=== PATIENT | female | born 2000 | race Caucasian/White ===

== ENCOUNTER 2020-04-20 20:20 | Emergency (ER) | payer OTHER, SELFPAY ==
[~2020-04-20] VITALS: Ht 160 cm; Wt 55.9 kg
[2020-04-20 21:50] LABS: BASO # 0.1 10^3/uL (0.0-0.2); BASO % 0.5 % (0.0-1.0); EOS % 0.4 % (0.0-3.0); HEMATOCRIT 39.8 % (36.0-47.0); HEMOGLOBIN 13.6 g/dl (12.0-15.5); LYMPH % 19.8 % (24.0-44.0); MEAN CORPUSCULAR HEMOGLOBIN 31.2 pg (27.0-33.0); MEAN CORPUSCULAR HGB CONC 34.2 g/dl (32.0-36.5); MEAN CORPUSCULAR VOLUME 91.3 fl (80.0-96.0); MONO # 0.7 10^3/uL (0.0-0.8); MONO % 6.4 % (0.0-5.0); NEUTROPHILS # 7.4 10^3/uL (1.5-8.5); NEUTROPHILS % 72.6 % (36.0-66.0); PLATELET COUNT, AUTOMATED 270 10^3/uL (150-450); RED BLOOD COUNT 4.36 10^6/uL (4.00-5.40); WHITE BLOOD COUNT 10.1 10^3/uL (4.0-10.0)
[2020-04-20 22:11] LABS: BLOOD UREA NITROGEN 19 MG/DL (7-18); CALCIUM LEVEL 9.6 MG/DL (8.5-10.1); CARBON DIOXIDE LEVEL 29 MEQ/L (21-32); CHLORIDE LEVEL 108 MEQ/L (98-107); CREATININE FOR GFR 0.72 MG/DL (0.55-1.30); GLOMERULAR FILTRATION RATE > 60.0 (>60); GLUCOSE, FASTING 75 MG/DL (70-100); POTASSIUM SERUM 3.5 MEQ/L (3.5-5.1); SODIUM LEVEL 141 MEQ/L (136-145)
[2020-04-20 23:30] VITALS: BP 106/60
--- NOTE | 2020-04-20 23:42 | REPVR ---
PROCEDURE INFORMATION: Exam: US First Trimester, Transabdominal Exam date and time: 04/20/2020 10:58 PM Age: 19 years old Clinical indication: complicated by abdominal or pelvic pain; Lower; First trimester; Gestational age or lmp: 6; TECHNIQUE: Imaging protocol: Real-time transabdominal obstetrical ultrasound of the maternal pelvis and a first trimester , less than 14 weeks 0 days, with image documentation. COMPARISON: No relevant prior studies available. FINDINGS: Gestation: Single live intrauterine gestation. Uterus is in the right horn of a bicornuate uterus. Embryonic/ heart rate: heart rate is 114 bpm. Placenta: Unremarkable. No subchorionic bleed. Amniotic fluid: Amniotic fluid is normal for gestational age. BIOMETRY: Gestational age (AUA): Estimated gestational age 6 weeks 0 days. Estimated due date (AUA): Estimated due date is 12/13/2020. Mean sac diameter: Mean sac diameter is 1.4 cm. [place]-Rump length: [place]-rump length measures measures 3.4 mm. MATERNAL: Uterus: Uterus measures 8.9 x 5.5 x 7.8 cm. No uterine masses. Bicornuate uterus. Cervix: Unremarkable. Right adnexa: Right ovary measures 3.6 x 2.1 x 1.9 cm. No masses. Left adnexa: Left ovary measures 3.5 x 2.3 x 2.2 cm. No masses. Intraperitoneal space: No intraperitoneal free fluid. IMPRESSION: 1. Single live intrauterine gestation. 2. Estimated gestational age 6 weeks 0 days. 3. Estimated due date is 12/13/2020. 4. Bicornuate uterus. 5. Gestational sac is located in the right uterine horn. Electronically signed by: Dorina Hwang On 04/20/2020 23:42:39 PM
== END 2020-04-20 23:47 | disposition home or self-care (01) ==
LOC: M ED 20:20
DX: O34.591 Maternal care for other abnormalities of gravid uterus, first trimester (principal); Z3A.01 Less than 8 weeks gestation of pregnancy; Z87.891 Personal history of nicotine dependence

== ENCOUNTER 2020-05-26 13:18 | Emergency (ER) | payer MEDICAID, SELFPAY ==
[~2020-05-26] VITALS: Ht 160 cm; Wt 58.4 kg
[2020-05-26] MEDS ORDERED: GNP650TA8 PO (13:28)
[2020-05-26] MEDS ORDERED: ACETAMINOPHEN 500 MG TAB PO ONE (13:45)
[2020-05-26 13:50] LABS: BASO % 0.3 % (0.0-1.0); EOS % 0.2 % (0.0-3.0); HEMATOCRIT 41.7 % (36.0-47.0); HEMOGLOBIN 14.1 g/dl (12.0-15.5); LYMPH # 1.3 10^3/uL (1.5-5.0); LYMPH % 10.6 % (24.0-44.0); MEAN CORPUSCULAR HEMOGLOBIN 31.4 pg (27.0-33.0); MEAN CORPUSCULAR HGB CONC 33.8 g/dl (32.0-36.5); MEAN CORPUSCULAR VOLUME 92.9 fl (80.0-96.0); MONO # 0.4 10^3/uL (0.0-0.8); MONO % 3.6 % (0.0-5.0); NEUTROPHILS # 10.4 10^3/uL (1.5-8.5); NEUTROPHILS % 85.1 % (36.0-66.0); PLATELET COUNT, AUTOMATED 299 10^3/uL (150-450); RED BLOOD COUNT 4.49 10^6/uL (4.00-5.40); WHITE BLOOD COUNT 12.2 10^3/uL (4.0-10.0)
[2020-05-26 14:14] LABS: BLOOD UREA NITROGEN 11 MG/DL (7-18); CALCIUM LEVEL 9.6 MG/DL (8.5-10.1); CARBON DIOXIDE LEVEL 27 MEQ/L (21-32); CHLORIDE LEVEL 109 MEQ/L (98-107); CREATININE FOR GFR 0.72 MG/DL (0.55-1.30); GLOMERULAR FILTRATION RATE > 60.0 (>60); GLUCOSE, FASTING 89 MG/DL (70-100); HCG, SERUM QUANTITATIVE 999 MIU/ML; SODIUM LEVEL 140 MEQ/L (136-145)
[2020-05-26 15:00] VITALS: BP 116/76
== END 2020-05-26 15:09 | disposition home or self-care (01) ==
LOC: M ED 13:18
DX: O03.9 Complete or unspecified spontaneous abortion without complication (principal); O99.330 Smoking (tobacco) complicating pregnancy, unspecified trimester; Z87.442 Personal history of urinary calculi; Z87.448 Personal history of other diseases of urinary system

== ENCOUNTER 2020-11-06 13:36 | Emergency (ER) | payer OTHER, MEDICAID ==
[~2020-11-06] VITALS: Ht 157.5 cm; Wt 56.0 kg
[~2020-11-06 13:36] MED LIST: GNP650TA8 PO
[2020-11-06 14:40] LABS: BASO % 0.3 % (0.0-1.0); HEMOGLOBIN 12.5 g/dl (12.0-15.5); LYMPH % 9.8 % (24.0-44.0); MEAN CORPUSCULAR HEMOGLOBIN 30.9 pg (27.0-33.0); MEAN CORPUSCULAR HGB CONC 33.8 g/dl (32.0-36.5); MEAN CORPUSCULAR VOLUME 91.4 fl (80.0-96.0); MONO # 0.4 10^3/uL (0.0-0.8); NEUTROPHILS % 85.5 % (36.0-66.0); PLATELET COUNT, AUTOMATED 214 10^3/uL (150-450); RED BLOOD COUNT 4.05 10^6/uL (4.00-5.40); WHITE BLOOD COUNT 10.6 10^3/uL (4.0-10.0)
[2020-11-06] MEDS ORDERED: ONDANSETRON 4MG/2ML VIAL IV ONE (15:15)
[2020-11-06] MEDS ORDERED: NS 500 ML IV ONE (15:15)
[2020-11-06 15:28] LABS: ALBUMIN 3.9 GM/DL (3.2-5.2); ALT/SGPT 24 U/L (12-78); BILIRUBIN,DIRECT < 0.1 MG/DL (0.0-0.2); BILIRUBIN,TOTAL 0.2 MG/DL (0.2-1.0); BLOOD UREA NITROGEN 13 MG/DL (7-18); CALCIUM LEVEL 9.3 MG/DL (8.5-10.1); CARBON DIOXIDE LEVEL 27 MEQ/L (21-32); CHLORIDE LEVEL 106 MEQ/L (98-107); CREATININE FOR GFR 0.69 MG/DL (0.55-1.30); GLOMERULAR FILTRATION RATE > 60.0 (>60); GLUCOSE, FASTING 87 MG/DL (70-100); HCG, SERUM QUANTITATIVE 97739 MIU/ML; LIPASE 140 U/L (73-393); SODIUM LEVEL 139 MEQ/L (136-145); TOTAL PROTEIN 7.6 GM/DL (6.4-8.2)
[2020-11-06] MEDS ORDERED: ACETAMINOPHEN 325 MG TAB PO ONE (15:55)
[2020-11-06] MEDS ORDERED: ZOFR4TAB16 PO (16:31)
[2020-11-06 16:41] VITALS: BP 109/51
== END 2020-11-06 16:46 | disposition home or self-care (01) ==
LOC: M ED 13:36
DX: O21.9 Vomiting of pregnancy, unspecified (principal); O26.833 Pregnancy related renal disease, third trimester; O26.899 Other specified pregnancy related conditions, unspecified trimester
CPT/HCPCS: 80048; 80076; 81001; 83690; 84702; 85025; 87086; 96361; 96374; 99284; J2405

== ENCOUNTER → 2021-02-01 | Outpatient (REF) | payer OTHER, MEDICAID ==
[~2021-02-01] MED LIST changes: +ZOFR4TAB16 PO
[2021-02-01 11:34] LABS: HEMATOCRIT 33.7 % (36.0-47.0); HEMOGLOBIN 11.2 g/dl (12.0-15.5); MEAN CORPUSCULAR HEMOGLOBIN 31.7 pg (27.0-33.0); MEAN CORPUSCULAR HGB CONC 33.2 g/dl (32.0-36.5); MEAN CORPUSCULAR VOLUME 95.5 fl (80.0-96.0); PLATELET COUNT, AUTOMATED 233 10^3/uL (150-450); RED BLOOD COUNT 3.53 10^6/uL (4.00-5.40); WHITE BLOOD COUNT 9.7 10^3/uL (4.0-10.0)
[2021-02-01 13:11] LABS: HEPATITIS C VIRUS ABY INDEX < 0.0 INDEX (<0.8); HIV 1&2 SCREEN CENTAUR NEGATIVE (NEGATIVE)
== END ==
LOC: M PLALAB 08:54
PROVIDERS: ATTEND Specialist
DX: Z36.89 Encounter for other specified antenatal screening (principal); Z3A.00 Weeks of gestation of pregnancy not specified

== ENCOUNTER → 2021-02-01 | Outpatient (CLI) | payer OTHER ==
--- NOTE | 2021-02-01 09:07 | REP ---
INDICATION: ANATOMY COMPARISON: None. TECHNIQUE: Transabdominal obstetrical ultrasound with color Doppler evaluation. FINDINGS: Examination demonstrates a single live intrauterine in cephalic presentation. motion is identified by technologist. Placenta is noted anterior and grade 0 without evidence for placenta previa or abruption. Amniotic fluid volume is normal. Cervix measures 3.2 cm in length and appears closed.. Selected gestational age: 21 weeks 1 day with JOYCE 06/13/2021. Gestational age by current measurements 21 weeks 1 day with JOYCE 06/13/2021. FHR equals 133 beats per minute. Estimated weight 394 grams (39thpercentile). Anatomical assessment demonstrates normal structures including cranium, choroid plexus, cavum, cerebellum/posterior fossa, facial features, lungs, diaphragm, stomach, cord insertion/three-vessel cord, kidneys/bladder, spine, and extremities. IMPRESSION: Single live intrauterine in cephalic presentation demonstrating appropriate interval growth. Limited evaluation of the heart/ventricular outflow tracts. Remainder of the anatomical assessment is complete and normal. <Electronically signed by Lennox Flynn > 02/01/21 [id number]
== END ==
LOC: M WHC 07:57
PROVIDERS: ATTEND Specialist
DX: Z36.89 Encounter for other specified antenatal screening (principal); Z3A.21 21 weeks gestation of pregnancy

== ENCOUNTER → 2021-02-07 | Outpatient (REF) | payer OTHER | LOC: M SFHCWAGY 12:53 | PROVIDERS: ATTEND Advanced Practice Midwife | DX: Z34.82 Encounter for supervision of other normal pregnancy, second trimester (principal); Z36.89 Encounter for other specified antenatal screening ==

== ENCOUNTER → 2021-04-04 | Outpatient (CLI) | payer OTHER ==
--- NOTE | 2021-04-04 11:34 | REP ---
INDICATION: F/U ANATOMY EDC 06/13/21 HEART VOT. COMPARISON: 02/01/2021 TECHNIQUE: TRANSABDOMINAL SCANNING FINDINGS: MULTIPLE ULTRASONOGRAPHIC IMAGES OF THE GRAVID UTERUS SHOWS A SINGLE LIVING INTRAUTERINE GESTATION IN THE CEPHALIC PRESENTATION. DOPPLER INTERROGATION OF THE HEART SHOWS A HEART RATE OF 139 BEATS PER MINUTE. THE PLACENTA IS ANTERIOR AND NOT LOW-LYING. THE CERVIX MEASURES 3.9 CM IN LENGTH AND IS CLOSED. DOPPLER INTERROGATION OF THE UMBILICAL ARTERY SHOWS AN A\B RATIO OF 3.51. THIS IS WITHIN THE NORMAL RANGE. BPD: 7.6 cm 30 weeks 2 days HC: 28.2 cm 30 weeks 6 days AC: 26.0 cm 30 weeks 1 day FL: 5.7 cm 30 weeks 0 days The estimated weight is 1531 g which is at the 44th percentile for a 30 week 0 day gestational age. Ventricular outflow tracts and four-chamber heart was still suboptimally visualized. IMPRESSION: Single living intrauterine gestation as described above with an estimated gestational age of 30 weeks 1 day via composite criteria and an estimated date of delivery of 06/12/2021 by today's exam. Four-chamber heart and ventricular outflow tracts still suboptimally visualized. Additional follow-up is recommended. <Electronically signed by Monico Calixto > 04/04/21 [id number]
== END ==
LOC: M WHC 09:16
PROVIDERS: ATTEND Advanced Practice Midwife
DX: Z34.82 Encounter for supervision of other normal pregnancy, second trimester (principal); Z36.2 Encounter for other antenatal screening follow-up; Z3A.30 30 weeks gestation of pregnancy

== ENCOUNTER → 2021-04-05 | Outpatient (CLI) | payer OTHER ==
[2021-04-05 17:26] LABS: HEMOGLOBIN 10.8 g/dl (12.0-15.5); MEAN CORPUSCULAR HEMOGLOBIN 31.5 pg (27.0-33.0); MEAN CORPUSCULAR HGB CONC 32.7 g/dl (32.0-36.5); MEAN CORPUSCULAR VOLUME 96.2 fl (80.0-96.0); PLATELET COUNT, AUTOMATED 257 10^3/uL (150-450); RED BLOOD COUNT 3.43 10^6/uL (4.00-5.40); WHITE BLOOD COUNT 14.6 10^3/uL (4.0-10.0)
== END ==
LOC: M PLALAB 13:03
PROVIDERS: ATTEND Advanced Practice Midwife
DX: Z34.82 Encounter for supervision of other normal pregnancy, second trimester (principal); Z3A.00 Weeks of gestation of pregnancy not specified

== ENCOUNTER → 2021-05-19 | Outpatient (REF) | payer OTHER | LOC: M SFHCWAGY 12:49 | PROVIDERS: ATTEND Obstetrics & Gynecology | DX: Z34.83 Encounter for supervision of other normal pregnancy, third trimester (principal); Z36.89 Encounter for other specified antenatal screening ==

== ENCOUNTER 2021-06-16 16:43 | Outpatient (CLI) | payer OTHER ==
[~2021-06-16] VITALS: Ht 157.5 cm; Wt 67.6 kg
[2021-06-16 17:06] VITALS: BP 134/76
[2021-06-16] MEDS ORDERED: PRENTAB9 PO (17:13)
[2021-06-16] MEDS ORDERED: BENA25CA4 PO (17:13)
[2021-06-16] MEDS ORDERED: IRON27TA2 PO (17:13)
[2021-06-16] MEDS ORDERED: ACET-907 PO (17:13)
[2021-06-16] MEDS ORDERED: HOME MED LIST COMPLETE! XX SCH (17:15)
[2021-06-16 18:34] VITALS: BP 109/73
[2021-06-16 19:18] VITALS: BP 123/59
--- NOTE | 2021-06-16 20:08 | IPNPDOC ---
Text Note Date of Service The patient was seen on 06/16/21. NOTE S: Yuli is a 20 year old at 40 3/7 who presented to Labor and Delivery with painful uterine contractions that began earlier this afternoon. She denies any loss of fluid or vaginal bleeding. Her is complicated by bicornate uterus, late entry to care at 18 weeks gestation and history of kidney stones. O: VS-see below FHR-135 with moderate variability, TOCO with uterine irritability. SVE reveals cervix at 1cm/25%/-3. No cervical change since arrival to unit. A: IUP at 40 3/7, reassuring monitoring strip, uterine irritability P: Discussed with patient that she is not in active labor at this time. Plan of care to have patient discharged to home. Pt on induction book for Saturday. Reviewed comfort measures, reviewed signs of labor and danger signs to report. Patient agrees with plan of care. VS,Fishbone, I+O VS, Fishbone, I+O Vital Signs Date Time Temp Pulse Resp B/P (MAP) Pulse Ox O2 Delivery O2 Flow Rate FiO2 06/16/21 19:18 98.2 80 16 123/59 (80) 100 Room Air Isabella Borrero CNM Jun 16, 2021 20:08
== END 2021-06-16 20:05 | disposition home or self-care (01) ==
LOC: M LDO 16:43
PROVIDERS: ATTEND Advanced Practice Midwife
DX: O60.03 Preterm labor without delivery, third trimester (principal); O34.03 Maternal care for unspecified congenital malformation of uterus, third trimester; Z87.442 Personal history of urinary calculi; Z3A.40 40 weeks gestation of pregnancy
CPT/HCPCS: 59025; G0378; G0463

== ENCOUNTER 2021-06-17 09:15 | Inpatient (IN) | payer OTHER ==
[2021-06-17] VITALS (37 sets, daily range): BP systolic 79–136; BP diastolic 43–80
[~2021-06-17] VITALS: Ht 157.5 cm; Wt 66.8 kg
[~2021-06-17 09:15] MED LIST changes: +ACET-907 PO; +BENA25CA4 PO; +IRON27TA2 PO; +PRENTAB9 PO
[2021-06-17] MEDS ORDERED: HOME MED LIST COMPLETE! XX SCH (10:20)
--- OUTSIDE RECORDS SUMMARY | 2021-06-17 12:23 | CCD ---
Author Author [facility] Organization [facility] Address Unknown Phone Unavailable Care Team Providers Care Optomechanical Engineer Name Role Phone Uzma Scott Unavailable PROBLEMS Type Condition ICD9-CM Code [id number] Code Onset Dates Condition S tatus W/U Status Risk SNOMED Code Notes Problem Bicornate uterus Q51.3 Active confirmed 314 62428 Problem Supervision of other normal Z34.80 Ac tive confirm [id number] ALLERGIES No Known Allergies ENCOUNTERS from 1998 to 2021-05-15 Encounter Location Date Provider Diagnosis [facility] [address] [facility] [phone] [place] [address] Mar, Uzma Tyler Limited car e in third trimester O09.33 and 32 weeks gestation of Z3A.32 IMMUNIZATIONS Vaccine Route Administration Date Status TDAP 0.5mL Boostrix IM Intramuscular Apr 04, 2021 Administere d SOCIAL HISTORY Tobacco Use: Social History Observation Description Date Details (start date - stop date) Former Smoker Sex Assigned At : Social History Observation Description Sex Assigned At Unknown Domestic Violence: Question Answer Notes Status: No history of abuse Tobacco Use: Question Answer Notes Are you a: former smoker one cig a month REASON FOR REFERRAL No Information VITAL SIGNS Weight 145.0 lbs Mar, Weight-kg 65.77 kg Mar, Height 63 in Mar, BMI 25.686 kg/m2 Mar, Blood pressure systolic 110 mm Hg Mar, Blood pressure diastolic 60 mm Hg Mar, MEDICATIONS Medication SIG (Take, Route, Frequency, Duration) Notes Start Da te End Date Status 27-1 MG 1 tablet Orally Once a day Active Iron Active PROCEDURES No Information RESULTS No Results REASON FOR VISIT 2wk pn MEDICAL (GENERAL) HISTORY Type Description Date Surgical History IUD Removal 09/2019 Goals Section No Information Health Concerns No Information MEDICAL EQUIPMENT No Information MENTAL STATUS No Information FUNCTIONAL STATUS No Information ASSESSMENTS Encounter Date Diagnosis Assessment Notes Treatment Notes Treatm ent Clinical Notes Mar, Limited care in third trimester (ICD-10 - O09.33) Mar, 32 weeks gestation of (ICD-10 - Z3A.32 ) PLAN OF TREATMENT Treatment Notes Test Name Order Date WWBC OBS FOLLOW UP OR REPEAT 2021-04-20 Next Appt Details 2 Weeks Reason:PN Provider Name:Beronica Worley, 2021-04-27 4 08:20:00 AM, [address] [place] [address] , [place], [address], Provider Name:Hema Parker, 01:00:00 PM, [address] [place] [address], , [place], [address], Follow Up:2 WeeksPN Insurance Providers Payer Name Payer Address Payer Phone Insured Name Patient Relati onship to Insured Coverage Start Date Coverage End Date [facility] [address] [place] [address] [employer] DEPT [address] [facility] [phone] IVAN MONTANEZ self
--- OUTSIDE RECORDS SUMMARY | 2021-06-17 12:23 | CCD ---
Author Author [facility] Organization [facility] Address Unknown Phone Unavailable Care Team Providers Care Jail Guard Name Role Phone Clayton LITTLE MD Unavailable Unavailable ANABEL, L LILIAM MD Unavailable Unavailable ANABEL, L LILIAM MD Unavailable Unavailable ANABEL, L LILIAM MD Unavailable Unavailable ANABEL, L LILIAM MD Unavailable Unavailable ANABEL, L LILIAM MD Unavailable Unavailable ANABEL, L LILIAM MD Unavailable Unavailable ANABEL, L LILIAM MD Unavailable Unavailable ANABEL, L LILIAM MD Unavailable Unavailable ANABEL, L LILIAM MD Unavailable Unavailable ANABEL, L LILIAM MD Unavailable Unavailable ANABEL, L LILIAM MD Unavailable Unavailable ANABEL, L LILIAM MD Unavailable Unavailable ANABEL, L LILIAM MD Unavailable Unavailable ANABEL, L LILIAM MD Unavailable Unavailable ANABEL, L LILIAM MD Unavailable Unavailable ANABEL, L LILIAM MD Unavailable Unavailable ANABEL, L LILIAM MD Unavailable Unavailable ANABEL, L LILIAM MD Unavailable Unavailable ANABEL, L LILIAM MD Unavailable Unavailable NON, PHYSICIAN STAFF Unavailable Unavailable Re-disclosure Warning The records that you are about to access may contain information from federally-assisted alcohol or drug abuse programs. If such information is present, then the following federally mandated warning applies: This information has been disclosed to you from records protected by federal confidentiality rules (42 CFR part 2). The federal rules prohibit you from making any further disclosure of this information unless further disclosure is expressly permitted by the written consent of the person to whom it pertains or as otherwise permitted by 42 CFR part 2. A general authorization for the release of medical or other information is NOT sufficient for this purpose. The Federal rules restrict any use of the information to criminally investigate or prosecute any alcohol or drug abuse patient.The records that you are about to access may contain highly sensitive health information, the redisclosure of which is protected by Article 27-F of the [facility] Public Health law. If you continue you may have access to information: Regarding HIV / AIDS; Provided by facilities licensed or operated by the [facility] Office of Mental Health; or Provided by the [facility] Office for People With Developmental Disabilities. If such information is present, then the following [facility] mandated warning applies: This information has been disclosed to you from confidential records which are protected by state law. State law prohibits you from making any further disclosure of this information without the specific written consent of the person to whom it pertains, or as otherwise permitted by law. Any unauthorized further disclosure in violation of state law may result in a fine or skilled nursing sentence or both. A general authorization for the release of medical or other information is NOT sufficient authorization for further disc losure. Encounters Encounter Providers Location Date Indications Data Source(s ) ( ESTOB) [facility] [place] [address] [place] [phone] 06/09/2021 12:00:00 AM EDT eCW1 ([facility]) ( ESTOB) [facility] [place] [address] [place] [phone] 05/30/2021 12:00:00 AM EDT eCW1 ([facility]) ( ESTOB) [facility] [address] [place] [address] 05/25/2021 12:00:00 AM EDT eCW1 ([facility]) ( ESTOB) [facility] [address] [place] [address] 05/19/2021 12:00:00 AM EDT eCW1 ([facility]) ( ESTOB) [facility] [address] [place] [address] 05/10/2021 12:00:00 AM EDT eCW1 ([facility]) ( ESTOB) [facility] [place] [address] [place] [phone] 05/02/2021 12:00:00 AM EDT eCW1 ([facility]) ( ESTOB) [facility] Est OB [address] [place] [address] 04/20/2021 12:00:00 AM EDT eCW1 ([facility]) ( ESTOB) [facility] Est OB [address] [place] [address] 04/04/2021 12:00:00 AM EDT eCW1 ([facility]) ( ESTOB) [facility] Est OB [address] [place] [address] 02/07/2021 12:00:00 AM EDT eCW1 ([facility]) ( NEWOB) [facility] New OB Visit [address] [place] [address] 01/10/2021 12:00:00 AM EDT eCW1 ([facility]) Emergency Attender: LILIAM LITTLE MDConsultant: STAFF NON 11/03/2020 01:09:00 PM EST - 11/03/2020 05:55:00 PM EST [facility] Patient discharged. Outpatient [address] [facility] [address] 05/27/2020 12:00:00 AM EDT eCW1 ([facility]) Immunizations Vaccine Date Status Description Data Source(s) Tdap 04/04/2021 11:39:00 AM EDT completed e CW1 ([facility]) Tdap 04/04/2021 11:39:00 AM EDT completed e CW1 ([facility]) Tdap 04/04/2021 11:39:00 AM EDT completed e CW1 ([facility]) Tdap 04/04/2021 11:39:00 AM EDT completed e CW1 ([facility]) Tdap 04/04/2021 11:39:00 AM EDT completed e CW1 ([facility]) Tdap 04/04/2021 11:39:00 AM EDT completed e CW1 ([facility]) Tdap 04/04/2021 11:39:00 AM EDT completed e CW1 ([facility]) Tdap 04/04/2021 11:39:00 AM EDT completed e CW1 ([facility]) Medications No Information Insurance Providers Payer name Policy type / Coverage type Policy ID Covered republican ID Covered republican's relationship to frias Policy Frias Plan Information [facility] [id number] SP [id number] KISHAN [id number] SP [id number] [facility] [id number] SP [id number] [facility] [id number] SP [id number] [facility] MEDICAID [id number] SP [id number] F [facility] MEDICAID [id number] SP [id number] [facility] [id number] SP [id number] EM[place] [id number] SP [id number] [facility] PHYS/HLTH PLAN [id number] SP [id number] [facility] PHYS/HLTH PLAN [id number] SP [id number] PRIVATE PAY MUDGE IVAN 18 MUD GE IVAN EMEDNY [id number] SP [id number] SELF PAY ONLY [id number] SP [id number] SELF PAY ONLY [id number] SP [id number] Problems, Conditions, and Diagnoses Code Display Name Description Problem Type Effective Dates Data Source(s) A72811 Personal history of nicotine dependence Personal history of nicotine dependence Diagnosis 11/03/2020 01:09:00 PM [facility] Z3A08 8 weeks gestation of 8 weeks gestation of pr egnancy Diagnosis 11/03/2020 01:09:00 PM [facility] R3129 Other microscopic hematuria Other microscopic hematuri a Diagnosis 11/03/2020 01:09:00 PM [facility] I77330 Other specified related condit ions, first trimester Other specified related conditions, first trimester Diagnosis 11/03/2020 01:09:00 PM [facility] R1032 Left lower quadrant pain Left lower quadrant pain Diag nosis 11/03/2020 01:09:00 PM [facility] Z34.80 care Supervision of other normal P enriquetalem 01/09/2021 12:00:00 AM EDT eCW1 ([facility]) Q51.3 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 05/26/2020 12:00:00 AM EDT eCW1 ([facility]) Surgeries/Procedures Procedure Description Date Indications Data Source(s) TDAP VACCINE 7/> YR IM 04/04/2021 12:00:00 AM EDT eCW1 ([facility]) Results ID Date Data Source GROUP B STREP CULTURE 05/19/2021 12:00:00 AM EDT eCW1 ([facility]) Name Value Range Interpretation Code Description Data Deb rce(s) Supporting Document(s) GROUP B STREP CULTURE eCW1 ([facility]) ID Date Data Source URINE CULTURE 02/07/2021 12:00:00 AM EDT eCW1 ([facility]) Name Value Range Interpretation Code Description Data Deb rce(s) Supporting Document(s) URINE CULTURE eCW1 ([facility]) ID Date Data Source [id number] 11/04/2020 08:49:00 [place] [address] PHONE: [phone] FAX: [phone] Name .................. : LISSETH LOVE Acct Number.................. : [id number] ROOM. ................. : TR-04 Number ................... : [id number] Stay type ............. : E/R Discharge Date......... ... : Admit Date ......... : 10/24 09/15 Admit Phys .................... : COONEYNORM Date of ....... : 2000 Family Phys ................... : NON STAFF Phone .................. : [phone] Age ................................ : 20 Film# .................. .:[id number] Sex ................................. : F Unsigned transcriptions are preliminary reports and do not represent a medical or legal document RENAL COMPLETE [id number] COMPLETE:11/03/20 17:09 ADB 6094 Reason(s): , left flank pain, microscopic hematuria RENAL ULTRASOUND: INDICATION: with left flank pain and microscopic hematuria. FINDINGS: The right kidney is normal in size, contour and echogenicity. The left kidney is also normal in size, contour and echogenicity. There is no hydronephrosis on the right. There is mild left renal pelvic fullness with no definitive hydronephrosis. No visualized stones. IMPRESSION: Mild left renal pelvic fullness. No stones are visualized. There could be a more distal obstructive stone. Electronically Reviewed and Signed By Aftab Main M.D. , 11/04/20 08:49, [place] Transcribe Initials: ERIKA , Transcribe Date: 11/03/20 17:37, Dictation Date: Copy for: [address] [place] [address] REC DISCHARGED Page 1 of 1 Name Value Range Interpretation Code Description Data Deb rce(s) Supporting Document(s) ID Date Data Source [id number] 11/04/2020 08:43:00 AM EST [facility] [address] [place] [address] PHONE: [phone] FAX: [phone] Name .................. : LISSETH LOVE Acct Number.................. : [id number] ROOM. ................. : TR-04 MR Number ................... : [id number] Stay type ............. : E/R Discharge Date......... ... : Admit Date ......... : 10/24 09/15 Admit Phys .................... : COONEYNORM Date of ....... : 2000 Family Phys ................... : NON STAFF Phone .................. : [phone] Age ................................ : 20 Film# .................. .:[id number] Sex ................................. : F Unsigned transcriptions are preliminary reports and do not represent a medical or legal document US OB 1ST TRI W TV IF NEEDED [id number] COMPLETE:11/03/20 15:40 GSP 6092 Reason(s): OBSTETRICAL ULTRASOUND: COMPARISON: None available. FINDINGS: Transvesical imaging of the pelvis demonstrates a single live intrauterine gestation of 7 weeks 5 days based on a crown rump length of 1.4 cm. A heart rate of 160 beats per minute is noted. The estimated date of delivery is approximately 06/12/21. IMPRESSION: Single live intrauterine gestation as described above. Electronically Reviewed and Signed By Enrique Tadeo MD , 11/04/20 08:43, AML Transcribe Initials: ERIKA , Transcribe Date: 11/03/20 17:19, Dictation Date: Copy for: 710 MED REC DISCHARGED Page 1 of 1 Name Value Range Interpretation Code Description Data Deb rce(s) Supporting Document(s) ID Date Data Source [id number] 11/03/2020 01:09:00 PM EST [facility] 1 OrderSheet [facility] Emergency Department [address] [place] [address] Phone #: ext- [phone] 11/03/2020 12:57 Patient: IVAN MONTANEZ Sex: F : 2000 Age: 20yWEIGHT:54.4 kg (S)ALLERGIES: NoneCHIEF COMPLAINT: abdominal painDIAGNOSIS: Patient currently , Blood in urineLAB ORDERSOrder Description Priority Entered Acknowledged InitialedCBC w Diff STAT 13:16 11/03/2020 13:18 Anabel Rowe Norma MD; Carlo JonesCMP STAT 13:16 11/03/2020 13:18 Anabel Rowe Norma MD; Carlo JonesUrinalysis (Clean STAT 13:16 11/03/2020 13:26 Joaquin EDCatch) Liliam Little MD; Sharmila Padron [id number] Serum Qual STAT 13:16 11/03/2020 13:18 Anabel Rowe Norma MD; Carlo JonesDIAGNOSTIC STUDY ORDERSOrder Description Priority Entered Acknowledged InitialedUS Pelvis STAT 14:49 11/03/2020 Initialed: 14:49 Carlo Rowe R.N.(Oxygen?(No)) Liliam Little MD; Cancelled: Physician Order 15:09 Cinthia Ho RN NOTES: ?8 weeks , LLQ pain, r/o torsion and ectopic Reason for Study: Pelvic PainUS OB 1ST TRI W STAT 15:09 11/03/2020 15:09 Vic,TV IF NEEDED Cinthia Ho RN; Cinthia RN(Oxygen?(No)) Verbal order per;(IV?(No)) Liliam Little MD Reason for Study: US RENAL STAT 16:16 11/03/2020 16:22 Jae,COMPLETE Liliam Little MD; Carlo Jones(Oxygen?(No))(IV?(Yes)) Reason for Study: , left flank pain, microscopic hematuriaMEDICATION/IV/DRIP/FLUID ORDERSOrder Description Priority Entered Acknowledged InitialedIV NS 1000 mL 13:17 11/03/2020 13:41 Jae, 2 OrderSheet [facility] Emergency Department [address] [place] [address] Phone #: ext- [phone] 11/03/2020 12:57 Patient: IVAN MONTANEZ Sex: F : 2000 Age: 20yBolus : Bolus 1000 Liliam Little MD; Carlo JonesmL (X1)Zofran IVP 4 mg 13:17 11/03/2020 13:42 Anabel Rowe Norma MD; Carlo JonesToradol IVP 30 mg 13:17 11/03/2020 13:42 Jae,(NOW x1) Liliam Little MD; Carlo JonesGENERAL ORDERSOrder Description Priority Entered Acknowledged Initialed[Electronically signed by Carlo Rowe R.N. (19:11/03/2020)][Electronically signed by Liliam Little MD (01:02 11/04/2020)][Elec tronically locked by Carol Rowe R.N. (:11/03/2020)] Name Value Range Interpretation Code Description Data Deb rce(s) Supporting Document(s) ID Date Data Source [id number] 11/03/2020 01:09:00 PM EST [facility] 1 Medication Reconciliation Report [facility] Emergency Department [address] [place] [address] Phone #: ext- [phone] 11/03/2020 12:57 Patient: IVAN MONTANEZ Sex: F : 2000 Age: 20yWeight: 54.4 kgHeight/Length: 62 in.BMI: 22.0ALLERGIES: NoneThe patient's Home Medications are listed below:NONE.The source(s) of the original Home Medication information:patientThe following Medications were given to the patient in the Emergency Department:NS [IV] IV Fluids bolus 0, then 1500 mL/hr, administered: 13:36 11/03/2020Zofran [IVP] IVP 4 mg, administered: 13:42 11/03/2020Toradol [IVP] IVP 30 mg, administered: 13:42 11/03/2020The following Medications were prescribed to the patient:None. Name Value Range Interpretation Code Description Data Deb rce(s) Supporting Document(s) ID Date Data Source [id number] 11/03/2020 01:09:00 PM EST [facility] 1 Medication Administration Record [facility] Emergency Department [address] [place] [address] Phone #: ext- [phone] 11/03/2020 12:57 Patient: IVAN MONTANEZ Sex: F : 2000 Age: 20yWeight: 54.4 kgHeight/Length: 62 inBMI: 22ALLERGIES: None Date/Time Medication Administered Medication OrderedStart NS [IV] IV NS 1000 mL Bolus : Bolus 708415:[id number] 11/03/2020 Dose: IV Fluids mL (X1)Carlo Rowe R.N. Rate: 1500 mL/hr over 40 minute(s)---- Dispensed: 1000 mL bagStop Site: #1 left AC14:10 11/03/2020Carlo braga RMassielGiven ZOFRAN [IVP] (ONDANSETRON HCL) Zofran IVP 4 mg13:42 11/03/2020 Dose: 4 mg IVPSCarlo braga R.N. Site: #1 left ACGiven TORADOL [IVP] (KETOROLAC Toradol IVP 30 mg (NOW x1)13:42 11/03/2020 TROMETHAMINE)Carlo Rowe R.N. Dose: 30 mg IVP Site: #1 left AC Name Value Range Interpretation Code Description Data Deb rce(s) Supporting Document(s) ID Date Data Source [id number] 11/03/2020 01:09:00 PM EST [facility] 1 General Instructions [facility] Emergency Department [address] [place] [address] Phone #: ext- [phone] 11/03/2020 12:57 Patient: IVAN MONTANEZ Sex: F : 2000 Age: 20yMicroscopic hematuriaFirst trimester ; positive test in emergency department.Possible Kidney Stone.INSTRUCTIONSNo strenuous activity.(Please follow up with OB and your primary care physician. You may take tylenol for pain. If you areworse, please return for further evaluation. You may have passed a kidney stone. It is very important tofollow up with your doctor regarding all of these issues.).Warnings: Further evaluation is necessary.GENERAL WARNINGS: Return or contact your physician immediately if your condition worsens orchanges unexpectedly, if not improving as expected, or if other problems arise.Follow-up:Follow up with your doctor Saturday even if well. Call for an appointment. Reason for referral: evaluation.Summary of care provided to patient via paper.Understanding of the discharge instructions verbalized by patient. ADDITIONAL INFORMATIONPregnancy 2 General Instructions [facility] Emergency Department [address] [place] [address] Phone #: ext- [phone] 11/03/2020 12:57 Patient: IVAN MONTANEZ Sex: F : 2000 Age: 20yYour exam today shows that you are . symptomsDuring your body's hormones change. This causes physical and emotional changes. Thisis normal. Knowing what to expect is important for your piece of mind and so you know when to seekhelp for a problem. Here are some of the most common symptoms: Morning sickness or nausea. This can happen any time of the day or night. Tender, swollen breasts Need to urinate frequently Tiredness or fatigue Dizziness Indigestion or heartburn Food cravings or turn-offs Constipation Emotional changes. This can range from anxiety to excitement to depression.General care for a healthy pregnancyHere are things you can do to help make sure your baby is born healthy: 3 General Instructions [facility] Emergency Department [address] [place] [address] Phone #: ext- [phone] 11/03/2020 12:57 Patient: IVAN MONTAENZ Sex: F : 2000 Age: 20y Rest when you feel tired. This is especially true in the later months of . Drink more fluids. Your body needs more fluids than you may be used to. Drink 8 to10 glasses of juice, milk, or water every day. Eat well-balanced meals. Eat at regular times to give your body enough protein. You can expect to gain about 30 pounds during the . Don't try to diet or lose weight while you are . Take a vitamin every day. This helps you meet the extra nutritional needs of . Don't take any other medicine during your unless your healthcare provider tells you to. This includes prescription medicines and those you buy over the counter. Many medicines can harm the growing baby. If you have nausea or vomiting, don't eat greasy or fried foods. Eat several smaller meals through out the day rather than 3 large meals. If you smoke, you must stop. The nicotine you breathe in goes right to the baby. Stay away from alcohol, even in moderate amounts. Daily drinking will harm your baby and can cause permanent brain damage. Don't use recreational drugs, especially cocaine, crack, and heroin. These will harm your baby. Also avoid marijuana. If you were using recreational drugs or prescribed medicine when you found out that you were , talk with your healthcare provider about possible effects on your growing baby. If you have medical problems that you need to take medicine for, talk with your healthcare provider.Follow-up careCall your healthcare provider to arrange for care. care is important. You can seeyour family provider, a specialist (machine tester), a loan collector, or a primary care clinic.When to seek medical adviceCall your healthcare provider right away if any of these occur: Vaginal bleeding Pain in your belly (abdomen) or back that is moderate or severe Lots of vomiting, or you can't keep any fluids down for 6 hours 4 General Instructions [facility] Emergency Department [address] [place] [address] Phone #: ext- [phone] 11/03/2020 12:57 Patient: IVAN MONTANEZ Sex: F : 2000 Age: 20y Burning feeling when you urinate Headache, dizziness, or rapid weight gain Fever Vision changes or blurred vision [phone] [employer] [place] [address], [place] [address]. All rights reserved. This information is not intended as asubstitute for professional medical care. Always follow your healthcare professional's instructions.Blood in the UrineBlood in the urine (hematuria) has many possible causes. If it occurs after an injury (such as a caraccident or fall), it is most often a sign of bruising to the kidney or bladder. Common causes of bloodin the urine include urinary tract infections, kidney stones, inflammation, tumors, or certain otherdiseases of the kidney or bladder. Menstruation can cause blood to appear in the urine sample, but itis not coming from the urinary tract.If only a tiny (trace) amount of blood is present, it will show up on the urine test, even though the urinemay be yellow and not pink or red. This may occur with any of the above conditions, as well as heavyexerci se or high fever. In this case, your healthcare provider may want to repeat the urine test onanother day. This will show if there is still blood in the urine. If there is, then other tests can be doneto find out the cause. 5 General Instructions [facility] Emergency Department [address] [place] [address] Phone #: ext- [phone] 11/03/2020 12:57 Patient: IVAN MONTANEZ Sex: F : 2000 Age: 20yHome careFollow these home care guidelines: If your urine does not look bloody (pink, brown, or red) then you don't need to restrict your activity in any way. If you can see blood in your urine, rest and don't do any strenuous activity until your next exam. Don't use aspirin, blood thinners, or anti-platelet or anti-inflammatory medicines. These include ibuprofen and naproxen. These thin the blood and may increase bleeding. Call your healthcare provider to talk about using these medicines.Follow-up careFollow up with your healthcare provider, or as advised. If you were injured and had blood in yoururine, you should have a repeat urine test in 1 to 2 days. Contact your provider for this test.A radiologist will review any X-rays that were taken. You will be told of any new findings that mayaffect your care.When to seek medical adviceCall your healthcare provider right away if any of these occur: Bright red blood or blood clots in the urine (if you did not have this before) Weakness, dizziness or fainting New groin, belly, or back pain Fever of 100.4F (38C) or higher, or as directed by your provider Repeated vomiting Bleeding from the nose or gums or easy bruising [employer] [address] [place] [address], [place] [address]. All rights reserved. This information is not intended as asubstitute for professional medical care. Always follow your healthcare professional's instructions. You have been given the following additional information: , New Dx Hematuria No strenuous activity. 6 General Instructions [facility] Emergency Department [address] [place] [address] Phone #: ext- [phone] 11/03/2020 12:57 [id number] Sex: F : 2000 Age: 20y(Electronically signed by Liliam Little MD 11/04/2020 01:02) Name Value Range Interpretation Code Description Data Deb rce(s) Supporting Document(s) ID Date Data Source [id number] 11/03/2020 01:09:00 PM EST [facility] 1 Clinical Report - Nurses [facility] Emergency Department [address] [place] [address] Phone #: ext- [phone] 11/03/2020 12:57 Patient: IVAN MONTANEZ Sex: F : 2000 Age: 20yTRIAGEHistorian: patient. ( left side pain).Triage time: 13:11 11/03/2020. Acuity: LEVEL 3.Chief Complaint: ABDOMINAL PAIN and NAUSEA.Alert. 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 No suspected or confirmed signs of infection present.--13:15 11/03/20 Carlo Rowe R.N.13:16 11/03/20. BP: 117/50. MAP: 72. HR: 61. RR: 16. O2 saturation: 100%. Temp: 98.3 F. Pain levelnow: 01/02. --13:16 11/03/20 Carlo Rowe R.N.Weight: 54.4 kg stated. Height/Length: 62 inches Per Patient. BMI: 22. --13:09 11/03/20 Carlo Rowe R.N.MedicationsNone. --17:55 11/03/20 Carlo Rowe R.N.AllergiesNone. --13:11 11/03/20 Carlo Rowe R.N.PROBLEMS:Nephrolithiasis. --13:13 11/03/20 Carlo Rowe R.N.Medication/allergy information source: the patient. --13:15 11/03/20 Carlo Rowe R.N.ADDITIONAL SURGERIES:D/c control device. --13:13 11/03/20 Carlo Rowe R.N.HistoryPAST MEDICAL HX: Confirmed .SOCIAL HX: Former smoker, end date 08/2020. No alcohol use or drug use. No recent travel. Noknown contact with a sick individual. She was offered HIV testing but declined and hepatitis C testing butdeclined. She has not traveled outside the [place] 2 Clinical Report - Nurses [facility] Emergency Department [address] [place] [address] Phone #: ext- [phone] 11/03/2020 12:57 Patient: IVAN MONTANEZ Sex: F : 2000 Age: 20y Infectious disease exposure: No infectious disease exposure. The patient was not exposed to Coronavirus. Patient is not a known carrier of tuberculosis, hepatitis, HIV, MRSA or VRE. Patient is not a known carrier of CRE. SELF HARM ASSESSMENT: Self harm assessment was performed. The patient answered "no" to the question(s) "Have you recently felt down, depressed, or hopeless?", "Do you have thoughts of harming or killing yourself?", "Do you have a plan for harming or killing yourself?" and "Have you recently had thoughts about harming or killing others?". ABUSE ASSESSMENT: No report of abuse. FALL RISK ASSESSMENT: Fall risk assessment completed. No risk factors identified. --13:15 11/03/20 S Carlo braga R.N. Assessment The patient states feels the same. --13:15 11/03/20 Carlo Rowe R.N. Interventions Identification band on patient. To treatment room. --13:15 11/03/20 Carlo Rowe R.N.PHYSICAL [id number] 11/03/20. Ambulatory to room. Patient gowned.GENERAL / NEURO / PSYCH: Alert. Oriented X 4. Appears in no acute distress.HEENT: Mucous membranes are pink.RESPIRATORY: Respirations not labored. Breath sounds within normal limits.CVS: Capillary refill less than 2 seconds.GI / : The patient has had nausea. Abdomen soft and nontender. Bowel sounds within normal limits.SKIN: Skin is warm and dry. --13:15 11/03/20 Carlo Rowe R.N.NURSING PROGRESS NOTESPatient gowned. Reassurance given. Two patient identifiers checked. Call light placed in reach. Siderails up x 1. Bed placed in lowest position. Brakes of bed on. Patient ready for evaluation- ED physiciannotified. --13:16 11/03/20 Carlo Rowe R.N. 13:30 11/03/2020 Site #1 started via IV in the left antecubital space with an 20g angiocath, with aseptic technique and good blood return; one attempt. Saline lock flushed with 10 mL saline. --13:40 11/03/20 Carlo Rowe R.N. 13:36 11/03/2020 Started bag #1 1000 mL IV Fluids NS; at 1500 mL/hr over 40 minute(s) via site #1 via IV pump. Allergies verified and confirmed 5 rights. IV patency established. IV site checked: no pain, redness, or swelling. IV flushed thoroughly pre- and post-medication administration. Information reviewed with patient including reason for taking this medication, signs of allergic reaction and precautions. Verbalizes understanding. --13:41 11/03/20 Carlo Rowe R.N. 3 Clinical Report - Nurses [facility] Emergency Department [address] [place] [address] Phone #: ext- [phone] 11/03/2020 12:57 Patient: IVAN MONTANEZ Sex: F : 2000 Age: 20y13:42 11/03/2020 Zofran (Ondansetron HCl) IVP 4 mg given over 2 minute(s) via site #1. Allergies verifiedand confirmed 5 rights. IV patency established. IV site checked: no pain, redness, or swelling. IV flushedthoroughly pre- and post- medication administration. IVP given by RN. Information reviewed with patientincluding reason for taking this medication, signs of allergic reaction and precautions. Verbalizesunderstanding. --13:42 11/03/20 Carlo Rowe R.N.13:42 11/03/2020 Toradol (Ketorolac Tromethamine) IVP 30 mg given over 2 minute(s) via site #1.Allergies verified and confirmed 5 rights. IV patency established. IV site checked: no pain, redness, orswelling. IV flushed thoroughly pre- and post-medication administration. IVP given by RN. Informationreviewed with patient including reason for taking this medication, signs of allergic reaction and precautions.Verbalizes understanding. --13:42 11/03/20 Carlo Rowe R.N.13:59 11/03/20. BP: 119/76. MAP: 90. HR: 64. RR: 16. O2 saturation: 99%. --14:00 11/03/20 Sharmila Arreola, Kntd753:10 11/03/2020 IV Fluids NS via IV site #1 Discontinued: bag #1 completed. Total amount infused: 1000mL. IV patency established. IV site checked: no pain, redness, or swelling. IV flushed thoroughly. --14: Carlo Rowe R.N.14:12 11/03/20. Reassurance given. Reassessment acuity: LEVEL 3. Reassessment after medicationadministered. No adverse reaction. Pain gone now. Nausea gone now. Overall patient status is improved-she states feels better. Two patient identifiers checked. Call light placed in reach. Side rails up x 1.Bed placed in lowest position. Brakes of bed on. --14:13 11/03/20 Carlo Rowe RCarmenNCarmen14:52 11/03/20. BP: 119/86. MAP: 97. HR: 71. RR: 16. O2 saturation: 99%. --14:52 11/03/20 Sharmila Arreola, Ddga358:05 11/03/20. Patient transported to [facility] by wheelchair with floor tech. --15:07 07/16Carlo Rowe R.NCarmen15:26 11/03/20. [facility] with [facility] tech. --15:26 11/03/20Carlo Rowe RCarmenNCarmen16:34 11/03/20. BP: 117/75. MAP: 89. HR: 64. RR: 16. O2 saturation: 99%. --16:34 11/03/20 Sharmila Arreola, Hopy101:36 11/03/20. Patient transported to [facility] by wheelchair with floor tech. --16:36 11/03/20Carlo Rowe R.N.17:07 11/03/20. Patient returned from [facility] by wheelchair with floor tech. --17:07 11/03/20Carlo Rowe R.N.17:29 11/03/20. BP: 117/68. MAP: 84. HR: 65. RR: 16. O2 saturation: 99%. --17:29 11/03/20 Sharmila Arreola, Tech1. 4 Clinical Report - Nurses [facility] Emergency Department [address] [place] [address] Phone #: ext- [phone] 11/03/2020 12:57 [id number] Sex: F : 2000 Age: 20yDISPOSITION / DISCHARGE 17:44 11/03/2020 Site #1 removed upon discharge. Catheter intact. Bandage applied. --17:54 11/03/20 Carlo Rowe R.N. 17:44 11/03/20. Departure time: 17:54 11/03/2020. Condition at departure: improved and stable. The goals identified in the patient's plan of care were met. Fall risk assessment completed. No risk factors identified. No learning barriers present. Discharge instructions provided and reviewed with the patient. Reviewed wa rnings. Reviewed medication(s). Treatments reviewed. Reviewed referral to a primary care physician. Activity restrictions (rest) reviewed. Patient verbalized understanding. Written instructions provided in Lithuanian. The patient was discharged home. She left ambulatory and via private vehicle. Patient driving. --17:55 11/03/20 Carlo Rowe R.N. 17:53 11/03/20. BP: 105/46. MAP: 65. HR: 52. RR: 12. O2 saturation: 100%. Temp: 98.5 F. Pain level now: 10/05. --17:55 11/03/20 Carlo Rowe R.N.Locked/Released at 11/03/2020 19:02 by Carlo Rowe R.N. Name Value Range Interpretation Code Description Data Deb rce(s) Supporting Document(s) ID Date Data Source [id number] 11/03/2020 01:09:00 PM EST [facility] 1 Clinical Report - Physicians/Mid Levels [facility] Emergency Department [address] [place] [address] Phone #: ext- [phone] 11/03/2020 12:57 Patient: IVAN MONTANEZ Sex: F : 2000 Age: 20y Arrived- By private vehicle. Historian- patient. Disposition decision: 17:41 11/03/2020.HISTORY OF PRESENT ILLNESS Chief Complaint: ABDOMINAL PAIN. No radiation. Not located in left lower quadrant. It is described as located in the left flank. This started just prior to arrival and is still present. At its maximum, severity described as mild. When seen in the E.D., severity described as mild. The patient has had nausea. No loss of appetite, vomiting or diarrhea. No additional abdominal pain. No recent travel. Similar symptoms previously. None. Recent medical care: Not recently seen/assessed.REVIEW OF SYSTEMSNo constipation, black stools, hematemesis or difficulty with urination or urination. No pain with urination,urinary frequency or urinary frequency, bloody stools or fever. No headache, sore throat or throat orblurred vision. No chest pain or pain, difficulty breathing, cough or joint pain. No skin rash or rash, chills,chills or fever. No eye irritation, ear pain, runny nose, cough or difficulty breathing. No diarrhea,vomiting, hematuria, headache or seizure. No easy bruising. The patient has had back pain and pain,abdominal pain and nausea but not had weight loss.PAST HISTORYSee nurses notes. Problems: . Nephrolithiasis. Additional Surgeries: D/c control device. Medications: None. Allergies: None.SOCIAL HISTORYNo drug use. 2 Clinical Report - Physicians/Mid Levels [facility] Emergency Department [address] [place] [address] Phone #: ext- [phone] 11/03/2020 12:57 --- Patient: IVAN MONTANEZ Sex: F : 2000 Age: 20yADDITIONAL NOTESThe nursing notes have been reviewed.PHYSICAL EXAMVital Signs: 11/03/2020 17:53 BP: 105/46. MAP: 65. HR: 52. RR: 12. O2 saturation: 100%. Temp: 98.5 F.Pain level now: 10/05.11/03/2020 17:29 BP: 117/68. MAP: 84. HR: 65. RR: 16. O2 saturation: 99%.11/03/2020 16:34 BP: 117/75. MAP: 89. HR: 64. RR: 16. O2 saturation: 99%.11/03/2020 14:52 BP: 119/86. MAP: 97. HR: 71. RR: 16. O2 saturation: 99%.11/03/2020 13:59 BP: 119/76. MAP: 90. HR: 64. RR: 16. O2 saturation: 99%.11/03/2020 13:16 BP: 117/50. MAP: 72. HR: 61. RR: 16. O2 saturation: 100%. Temp: 98.3 F. Pain levelnow: 01/02. Have been reviewed and appear to be correct. Blood pressure normal. Mean arterialpressure- normal. Heart rate normal. Respiratory rate normal. Temperature normal. Oxygensaturation normal.Appearance: Alert. Oriented X3. No acute distress.Eyes: Pupils equal, round and reactive to light. Eyes normal inspection.ENT: Nose normal. Pharynx normal.Neck: Normal inspection. Neck supple.CVS: Normal heart rate and rhythm. Heart sounds normal. Pulses normal.Respiratory: No respiratory distress. Painless inspiration. Breath sounds normal. Chest nontender.Abdomen: Soft. Mild tenderness in the left lower quadrant. Bowel sounds normal. No mass.Back: Normal inspection. No CVA tenderness.Skin: Skin warm and dry. Normal skin color. No rash. Normal skin turgor.Extremities: Extremities exhibit normal ROM. No lower extremity edema.Neuro: Oriented X 3. No motor deficit. No sensory deficit.LABS, X-RAYS, AND EKGLaboratory Tests: US RENAL COMPLETE: (NNAMDI: 11/03/2020 16:16) ( MsgRcvd 11/03/2020 17:39) In Progress US RENAL COMPLETE Reason(s): , left flank pain, microscopic hematuria TRANSPORTATION: IV? IV?(Yes) O2? Oxygen?(No) Ro Test Result Flag Units (Reference) [place] [address] PHONE: [phone] FAX: [phone] -- Name .................. : LISSETH IVAN Acct Number.................. : [id number] ROOM. ................. : TR-04 MR Number ................... : [id number] Stay type ............. : E/R Discharge Date......... ... : Admit Date ......... : 11/03/20 Admit Phys .................... : COONEYNORM Date of ....... : 2000 Family Phys ................... : NON STAFF Phone .................. : [phone] Age ................................ : 20 Film# .................. .:[id number] Sex ................................. : F -- Unsigned transcriptions are preliminary reports and do not represent a medical or legal document RENAL COMPLETE [id number] COMPLETE:11/03/20 17:09 ADB 6094 3 Clinical Report - Physicians/Mid Levels [facility] Emergency Department [address] [place] [address] Phone #: ext- [phone] 11/03/2020 12:57 -- Patient: IVAN MONTANEZ Sex: F : 2000 Age: 20y Reason(s): , left flank pain, microscopic hematuria -- -- -- -- RENAL ULTRASOUND: -- INDICATION: with left flank pain and microscopic hematuria. -- -- FINDINGS: The right kidney is normal in size, contour and echogenicity. -- The left kidney is also normal in size, contour and echogenicity. -- There is no hydronephrosis on the right. There is mild left renal pelvic fullness with no definitive -- hydronephrosis. -- No visualized stones. -- -- IMPRESSION: Mild left renal pelvic fullness. No stones are visualized. There could be a more distal obstructive -- stone. -- -- Electronically Reviewed and Signed By DCTNAME , SIGNDATE, ESTUARDO -- Transcribe Initials: ERIKA , Transcribe Date: 11/03/20 17:37, Dictation Date: -- -- <<REPDIST>> -- -- -- -- Page 1 of 1 --US OB 1ST TRI W TV IF NEEDED: (NNAMDI: 11/03/2020 15:09) ( MsgRcvd 11/03/2020 17:21) In ProgressUS OB 1ST TRI W TV IF NEEDEDReason(s): TRANSPORTATION: WC IV? IV?(No) O2? Oxygen?(No) Alina Test Result Flag Units (Reference) US OB 1ST TRI W TV IF NEEDED [id number] [place] [address] PHONE: [phone] FAX: [phone] -- Name .................. : LISSETH PARKERABELLA Acct Number.................. : [id number] ROOM. ................. : TR-04 MR Number ................... : [id number] Stay type ............. : E/R Discharge Date......... ... : Admit Date ......... : 11/03/20 Admit Phys .................... : COONEYNORM Date of ...... . : 2000 Family Phys ................... : NON STAFF Phone .................. : [phone] Age ................................ : 20 Film# .................. .:[id number] Sex ................................. : F -- Unsigned transcriptions are preliminary reports and do not represent a medical or legal document US OB 1ST TRI W TV IF NEEDED [id number] COMPLETE:11/03/20 15:40 GSP 6034 Reason(s): 4 Clinical Report - Physicians/Mid Levels [facility] Emergency Department [address] [place] [address] Phone #: ext- [phone] 11/03/2020 12:57 Patient: IVAN MONTANEZ Sex: F : 2000 Age: 20y -- -- -- -- OBSTETRICAL ULTRASOUND: -- COMPARISON: None available. -- -- FINDINGS: Transvesical imaging of the pelvis demonstrates a single live intrauterine gestation of 7 weeks 5 days based on a crown rump length of 1.4 cm. A heart rate of 160 beats per minute is noted. The estimated date of delivery is approximately 06/12/21. -- -- IMPRESSION: Single live intrauterine gestation as described above. -- -- Electronically Reviewed and Signed By DCTNAME , SIGNDATE, [facility] -- Transcribe Initials: ERIKA Transcribe Date: 11/03/20 17:19, Dictation Date: -- -- <<REPDIST>> -- -- -- -- Page 1 of 1 --US Pelvis: (NNAMDI: 11/03/2020 14:49) ( MsgRcvd 11/03/2020 15:09) CanceledReason(s): Pelvic PainReason(s): Pelvic PainTRANSPORTATION: WC IV? O2? Oxygen?(No) Room: ED: Yes CMTS: ?8 weeks , LLQ pain, r/o torsion and ectopCBC w Diff: (NNAMDI: 11/03/2020 13:31) ( MsgRcvd 11/03/2020 13:41) Final results Test Result Flag Units (Reference) CBC W/AUTOMATED DIFF COMPLETE BLOOD COUNT WBC 7.3 10/uL (4.2 - 11.0) RBC 4.03 L 10/uL (4.20 - 5.40) HEMOGLOBIN 12.6 g/dL (12.0 - 16.0) HEMATOCRIT 36.8 L % (37.0 - 47.0) MCV 91.3 fL (81.0 - 101) MCH 31.3 pg (27.0 - 34.0) MCHC 34.2 g/dL (31.0 - 36.0) RDW 11.9 % (11.5 - 14.5) PLATELETS 213 10/uL (150 - 450) MPV 11.2 H fL (7.4 - 10.4) NEUT 78.2 % (37.0 - 80.0) LYMPH 15.0 L % (25.0 - 40.0) MONO 6.1 % (3.0 - 8.0) EOS 0.0 % (0.0 - 7.0) BASO 0.3 % (0.0 - 2.5) %IG 0.4 H % (0.0 - 0.0) %NRBC 0.0 % (0.0 - 0.0) 5 Clinical Report - Physicians/Mid Levels [facility] Emergency Department [address] [place] [address] Phone #: ext- [phone] 11/03/2020 12:57 Patient: IVAN MONTANEZ Sex: F : 2000 Age: 20y #NEUT 5.68 10/uL (2.00 - 6.90) #LYMPH 1.09 10/uL (0.60 - 3.40) #MONO 0.44 10/uL (0.00 - 0.90) #EOS 0.00 10/uL (0.00 - 0.70) #BASO 0.02 10/uL (0.00 - 0.20) #IG 0.03 10/uL (0.00 - 0.10) #NRBC 0.00 10/uL (0.00 - 0.00) MANUAL DIFF NOT INDICATED RBC MORPH NOT INDICATEDCMP: (NNAMDI: 11/03/2020 13:31) ( MsgRcvd 11/03/2020 14:43) Final results Test Result Flag Units (Reference) COMPREHENSIVE METABOLIC PANEL COMPREHENSIVE METABOLIC PANEL SODIUM 137 mEq/L (134 - 153) POTASSIUM 3.6 mEq/L (3.6 - 5.0) CHLORIDE 103 mEq/L (98 - 107) CO2 22 MEQ/L (22 - 30) GLUCOSE 78 MG/DL (70 - 99) BUN 8 MG/DL (7 - 21) CREATININE 0.4 L MG/DL (0.7 - 1.5) BUN/CREAT 20 (8 - 27) TOTAL PROTEIN 6.9 G/DL (6.3 - 8.2) ALBUMIN 4.0 G/DL (3.9 - 5.0) GLOBULIN 2.9 GM/DL (2.4 - 3.2) A/G RATIO 1.4 (0.8 - 2.0) CALCIUM 9.4 MG/DL (8.4 - 10.2) TOTAL BILI <0.7 MG/DL (0.2 - 1.3) ALKALINE PHOS 39 U/L (38 - 126) SGOT/AST 16 U/L (5 - 40) SGPT/ALT 12 U/L (7 - 56) ANION GAP 12.0 mmol/L (8.0 - 16.0) AGE 20 yrs NON-AA GFR >60 mL/min AFR AMER GFR >60 mL/min Male GFR Interprentation 20-49 yrs >60 mL/min Gsejho41-95 yrs >56 mL/min Normal 60-69 yrs >49 mL/min Normal 70-79yrs>42 mL/min Normal 80 and above >35 mL/min Normal Female GFRInterpretation 20-39 yrs >60 mL/min Normal 40-49 yrs >58 mL/minNormal 50-59 yrs >51 mL/min Normal 60-69 yrs >45 mL/min Znelhd10- 79 yrs >39 mL/min Normal 80 and above >32 mL/min NormalBeta-HCG, Qual Serum: (NNAMDI: 11/03/2020 13:31) ( MsgRcvd 11/03/2020 14:37) Final results Test Result Flag Units (Reference) HCG SERUM QUAL POSITIVE (NORMAL: NEGAT HCG SERUM QL REENTER POSITIVE (NORMAL: NEGAT { KIT LOT # [id number] ){ KIT EXP DATE03.25.22 ){ PROCEDURAL CONTROL VALID)Urinalysis: (NNAMDI: 11/03/2020 13:00) ( MsgRcvd 11/03/2020 13:41) Final results Test Result Flag Units (Reference) URINALYSIS URINALYSIS SOURCE R 6 Clinical Report - Physicians/Mid Levels [facility] Emergency Department [address] [place] [address] Phone #: ext- [phone] 11/03/2020 12:57 Patient: IVAN MONTANEZ Sex: F : 2000 Age: 20y COLOR yellow (NORMAL: Yello CLARITY cloudy (NORMAL: Clear SPEC GRAVITY 1.025 (1.001 - 1.030 pH 6 (5 - 9) GLUCOSE NORM (NORMAL: Negat BILIRUBIN NEG (NORMAL: Negat KETONE 50 A (NORMAL: Negat PROTEIN 30 (NORMAL: Negat NITRITE NEG (NORMAL: Negat BLOOD 250 A (NORMAL: Negat LEUK EST NEG (NORMAL: Negat UROBILINOGEN NOR (less than 1.0 MICROSCOPIC See Below WBC None Seen (NORMAL: NONE RBC 40 - 50 A (NORMAL: NONE EPITHELIAL FEW (NORMAL: NONE BACTERIA Trace (NORMAL: NONE MUCOUS Trace (NORMAL: NONE.PROGRESS AND PROCEDURESCourse of Care: pt presented for evaluation of her left flank and llq abdominal pain. on exam, she wasnon-toxic. she did have tenderness to her llq on exam. labs reviewed and grossly nl.. us pelvis showsiup approx 8 weeks. us kidneys show mild fullness to left kidney. possible passed stone. Pt givenantibiotics. pt encouraged to f/u with pcp and ob. pt encouraged to return if worse or any new symptoms.Pt agrees with plan. Patient/family counseled. Disposition: Discharged. Condition: good and stable.CLINICAL IMPRESSION Microscopic hematuria First trimester ; positive test in emergency department. Possible Kidney Stone.INSTRUCTIONS No strenuous activity. (Please follow up with OB and your primary care physician. You may take tylenol for pain. If you are worse, please return for further evaluation. You may have passed a kidney stone. It is very important to follow up with your doctor regarding all of these issues.). Warnings: Further evaluation is necessary. GENERAL WARNINGS: Return or contact your physician immediately if your condition worsens or 7 Clinical Report - Physicians/Mid Levels [facility] Emergency Department [address] [place] [address] Phone #: ext- [phone] 11/03/2020 12:57 Patient: IVAN MONTANEZ Sex: F : 2000 Age: 20y changes unexpectedly, if not improving as expected, or if other problems arise. Follow-up: Follow up with your doctor Saturday even if well. Call for an appointment. Reason for referral: evaluation. Summary of care provided to patient via paper. Understanding of the discharge instructions verbalized by patient.(Electronically signed by Liliam Little MD 11/04/2020 01:02) Name Value Range Interpretation Code Description Data Deb knapp(s) Supporting Document(s) ID Date Data Source [id number] 11/03/2020 02:43:00 PM [facility] Name Value Range Interpretation Code Description Data Deb rce(s) Supporting Document(s) COMPREHENSIVE METABOLIC PANEL [facility] COMPREHENSIVE METABOLIC PANEL Sodium [Moles/volume] in Serum or Plasma 137 mEq/L 134 - 153 [facility] Potassium [Moles/volume] in Serum or Plasma 3.6 mEq/L 3.6 - 5.0 [facility] Chloride [Moles/volume] in Serum or Plasma 103 mEq/L 98 - 107 [facility] Carbon dioxide, total [Moles/volume] in Serum or Plasma 22 MEQ/L 22 - 30 [facility] Glucose [Mass/volume] in Serum or Plasma 78 MG/DL 70 - 99 [facility] BUN 8 MG/DL 7 - 21 [facility] al Creatinine [Mass/volume] in Serum or Plasma 0.4 MG/DL 0.7 - 1.5 L [facility] BUN/CREAT 20 8 - 27 [facility] Protein [Mass/volume] in Serum or Plasma 6.9 G/DL 6.3 - 8.2 [facility] Albumin [Mass/volume] in Serum or Plasma 4.0 G/DL 3.9 - 5.0 [facility] Globulin [Mass/volume] in Serum by calculation 2.9 GM/DL 2.4 - 3.2 [facility] A/G RATIO 1.4 0.8 - 2.0 [facility] Calcium [Mass/volume] in Serum or Plasma 9.4 MG/DL 8.4 - 10.2 [facility] Bilirubin.total [Mass/volume] in Serum or Plasma <0.7 MG/DL 0.2 - 1.3 [facility] Alkaline phosphatase [Enzymatic activity/volume] in Serum or Plasma 39 U/L 38 - 126 [facility] Aspartate aminotransferase [Enzymatic activity/volume] in Serum or Plasma 16 U/L 5 - 40 [facility] Alanine aminotransferase [Enzymatic activity/volume] in Seru m or Plasma 12 U/L 7 - 56 [facility] Anion gap 3 in Serum or Plasma 12.0 mmol/L 8.0 - 16.0 [facility] AGE 20 yrs [facility] al NON-AA GFR >60 mL/min [facility] ital AFR AMER GFR >60 mL/min [facility] Ho spital Male GFR In terprentation 20-49 yrs >60 mL/min Normal 50-59 yrs >56 mL/min Normal 60-69 yrs >49 mL/min Normal 70-79yrs >42 mL/min Normal 80 and above >35 mL/min Normal Female GFR Interpretation 20-39 yrs >60 mL/min Normal 40-49 yrs >58 mL/min Normal 50-59 yrs >51 mL/min Normal 60-69 yrs >45 mL/min Normal 70-79 yrs >39 mL/min Normal 80 and above >32 mL/min Normal ID Date Data Source [id number] 11/03/2020 02:35:00 PM EST [facility] Name Value Range Interpretation Code Description Data Deb rce(s) Supporting Document(s) HCG SERUM QUAL POSITIVE NORMAL: NEGATIVE [facility] HCG SERUM QL REENTER POSITIVE NORMAL: NEGATIVE [facility] { KIT LOT # [id number] ){ KIT EXP DATE 03.25.22 ){ PROCEDURAL CONTROL VALID ) ID Date Data Source [id number] 11/03/2020 01:40:00 PM [facility] Name Value Range Interpretation Code Description Data Deb rce(s) Supporting Document(s) CBC W/AUTOMATED DIFF [facility] COMPLETE BLOOD COUNT Leukocytes [#/volume] in Blood by Automated count 7.3 10^3/uL 4.2 - 1 1.0 [facility] Erythrocytes [#/volume] in Blood by Automated count 4.03 10^6/uL 4. 20 - 5.40 L [facility] Hemoglobin [Mass/volume] in Blood 12.6 g/dL 12.0 - 16.0 [facility] Hematocrit [Volume Fraction] of Blood by Automated count 36.8 % 3 7.0 - 47.0 L [facility] Erythrocyte mean corpuscular volume [Entitic volume] by Auto mated count 91.3 fL 81.0 - 101 [facility] Erythrocyte mean corpuscular hemoglobin [Entitic mass] by Automated count 31.3 pg 27.0 - 34.0 [facility] Erythrocyte mean corpuscular hemoglobin concentration [Mass/volume] by Automated count 34.2 g/dL 31.0 - 36.0 [facility] Erythrocyte distribution width [Ratio] by Automated count 11.9 % 11.5 - 14.5 [facility] Platelets [#/volume] in Blood by Automated count 213 10^3/uL 150 - 45 0 [facility] Platelet mean volume [Entitic volume] in Blood by Automated count 11.2 fL 7.4 - 10.4 H [facility] Neutrophils/100 leukocytes in Blood by Automated count 78.2 % 37. 0 - 80.0 [facility] Lymphocytes/100 leukocytes in Blood by Manual count 15.0 % 25.0 - 40.0 L [facility] Monocytes/100 leukocytes in Blood by Automated count 6.1 % 3.0 - 8.0 [facility] Eosinophils/100 leukocytes in Blood by Automated count 0.0 % 0.0 - 7.0 [facility] Basophils/100 leukocytes in Blood by Automated count 0.3 % 0.0 - 2.5 [facility] %IG 0.4 % 0.0 - 0.0 H [facility] %NRBC 0.0 % 0.0 - 0.0 [facility] al Neutrophils [#/volume] in Blood by Automated count 5.68 10^3/uL 2.00 - 6.90 [facility] Lymphocytes [#/volume] in Blood by Automated count 1.09 10^3/uL 0.60 - 3.40 [facility] Monocytes [#/volume] in Blood by Automated count 0.44 10^3/uL 0.00 - 0.90 [facility] Eosinophils [#/volume] in Blood by Automated count 0.00 10^3/uL 0.00 - 0.70 [facility] Basophils [#/volume] in Blood by Automated count 0.02 10^3/uL 0.00 - 0.20 [facility] #IG 0.03 10^3/uL 0.00 - 0.10 [facility] #NRBC 0.00 10^3/uL 0.00 - 0.00 [facility] ospital MANUAL DIFF NOT INDICATED [facility] RBC MORPH NOT INDICATED [facility] spital ID Date Data Source [id number] 11/03/2020 01:40:00 PM EST [facility] Name Value Range Interpretation Code Description Data Deb rce(s) Supporting Document(s) [facility]IS [facility] URINALYSIS SOURCE R [facility] COLOR yellow NORMAL: Yellow [facility] CLARITY cloudy NORMAL: Clear [facility] Specific gravity of Urine by Test strip 1.025 1.001 - 1.030 [facility] pH 6 5 - 9 [facility] Glucose [Mass/volume] in Urine by Test strip NORM NORMAL: Negat [facility] Bilirubin.total [Presence] in Urine by Test strip NEG NORMAL: Negative [facility] Ketones [Presence] in Urine by Test strip 50 NORMAL: Negative [facility] Protein [Mass/volume] in Urine by Test strip 30 NORMAL: Negat [facility] Nitrite [Presence] in Urine by Test strip NEG NORMAL: Negative [facility] BLOOD 250 NORMAL: Negative [facility] Leukocyte esterase [Presence] in Urine by Test strip NEG LILIAM L: Negative [facility] Urobilinogen [Mass/volume] in Urine by Test strip NOR less cony n 1.0 mg/dL [facility] MICROSCOPIC See Below [facility] ital WBC None Seen NORMAL: NONE SEEN [facility] Erythrocytes [#/volume] in Urine by Test strip 40 - 50 NORMAL: NON E SEEN A [facility] EPITHELIAL FEW NORMAL: NONE SEEN [facility] Bacteria [Presence] in Urine sediment by Light microscopy Tr juve NORMAL: NONE SEEN [facility] Mucus [Presence] in Urine sediment by Light microscopy Trace NORMAL: NONE SEEN [facility] Procedure Social History Code Duration Value Status Description Data Source(s ) Smoking 06/09/2021 12:00:00 AM EDT Former Smoker completed Former Smoker eCW1 ([facility]) Smoking 05/29/2021 12:00:00 AM EDT Former Smoker completed Former Smoker eCW1 ([facility]) Smoking 05/29/2021 12:00:00 AM EDT Former Smoker completed Former Smoker eCW1 ([facility]) Smoking 05/25/2021 12:00:00 AM EDT Former Smoker completed Former Smoker eCW1 ([facility]) Smoking 05/11/2021 12:00:00 AM EDT Former Smoker completed Former Smoker eCW1 ([facility]) Smoking 05/11/2021 12:00:00 AM EDT Former Smoker completed Former Smoker eCW1 ([facility]) Smoking 05/11/2021 12:00:00 AM EDT Former Smoker completed Former Smoker eCW1 ([facility]) Smoking 03/29/2021 12:00:00 AM EDT Current some day smoker com pleted Current some day smoker eCW1 ([facility]) Smoking 02/06/2021 12:00:00 AM EDT Current some day smoker com pleted Current some day smoker eCW1 ([facility]) Smoking 01/10/2021 12:00:00 AM EDT Current some day smoker com pleted Current some day smoker eCW1 ([facility]) Smoking 05/27/2020 12:00:00 AM EDT Current Smoker completed Curre nt Smoker eCW1 ([facility]) Vital Signs ID Date Data Source UNK Name Value Range Interpretation Code Description Data Source(s) Body weight 147 [lb_av] 147 [lb_av] eCW1 ([facility]) Body height 63 [in_i] 63 [in_i] W1 ([facility]) Body mass index (BMI) [Ratio] 26.04 kg/m2 26.04 kg/m2 W1 ([facility]) Systolic blood pressure 100 mm[Hg] 100 mm[Hg] e CW1 ([facility]) Diastolic blood pressure 80 mm[Hg] 80 mm[Hg] eCW1 ([facility]) Body weight 146.4 [lb_av] 146.4 [lb_av] eCW1 ([facility], 1928–1983) Body weight 66.41 kg 66.41 kg W1 ([facility]) Body height 63 [in_i] 63 [in_i] eCW1 ([facility]) Body mass index (BMI) [Ratio] 25.934 kg/m2 25.9 34 kg/m2 [facility] ([facility]) Systolic blood pressure 100 mm[Hg] 100 mm[Hg] e CW1 ([facility]) Diastolic blood pressure 60 mm[Hg] 60 mm[Hg] eCW1 ([facility]) Body weight 147.6 [lb_av] 147.6 [lb_av] eCW1 (Former[facility], 1928–1983) Body weight 66.95 kg 66.95 kg eCW1 ([facility]) Body height 63 [in_i] 63 [in_i] eCW1 ([facility]) Body mass index (BMI) [Ratio] 26.146 kg/m2 26.1 46 kg/m2 eCW1 ([facility]) Systolic blood pressure 102 mm[Hg] 102 mm[Hg] e CW1 ([facility]) Diastolic blood pressure 70 mm[Hg] 70 mm[Hg] eCW1 ([facility]) Body weight 147 [lb_av] 147 [lb_av] eCW1 ([facility]) Body height 63 [in_i] 63 [in_i] eCW1 ([facility]) Body mass index (BMI) [Ratio] 26.04 kg/m2 26.04 kg/m2 eCW1 ([facility]) Systolic blood pressure 92 mm[Hg] 92 mm[Hg] e CW1 ([facility]) Diastolic blood pressure 60 mm[Hg] 60 mm[Hg] eCW1 ([facility]) Body weight 148.4 [lb_av] 148.4 [lb_av] eCW1 ([facility], 1928–1983) Body weight 67.31 kg 67.31 kg eCW1 ([facility]) Body height 63 [in_i] 63 [in_i] eCW1 ([facility]) Body mass index (BMI) [Ratio] 26.288 kg/m2 26.2 88 kg/m2 eCW1 ([facility]) Systolic blood pressure 108 mm[Hg] 108 mm[Hg] e CW1 ([facility]) Diastolic blood pressure 66 mm[Hg] 66 mm[Hg] eCW1 ([facility]) Body weight 146.4 [lb_av] 146.4 [lb_av] eCW1 ([facility], 1928–[facility]) Body height 63 [in_i] 63 [in_i] eCW1 ([facility]) Body mass index (BMI) [Ratio] 25.934 kg/m2 25.9 34 kg/m2 eCW1 ([facility]) Systolic blood pressure 110 mm[Hg] 110 mm[Hg] e CW1 ([facility]) Diastolic blood pressure 62 mm[Hg] 62 mm[Hg] eCW1 ([facility]) Body weight 145.0 [lb_av] 145.0 [lb_av] eCW1 ([facility], 1928–1983) Body weight 65.77 kg 65.77 kg eCW1 ([facility]) Body height 63 [in_i] 63 [in_i] eCW1 ([facility]) Body mass index (BMI) [Ratio] 25.686 kg/m2 25.6 86 kg/m2 eCW1 ([facility]) Systolic blood pressure 110 mm[Hg] 110 mm[Hg] e CW1 ([facility]) Diastolic blood pressure 60 mm[Hg] 60 mm[Hg] eCW1 ([facility]) Body weight 143.6 [lb_av] 143.6 [lb_av] eCW1 ([facility], 1928–1983) Body weight 65.14 kg 65.14 kg eCW1 ([facility]) Body height 63 [in_i] 63 [in_i] eCW1 ([facility]) Body mass index (BMI) [Ratio] 25.438 kg/m2 25.4 38 kg/m2 eCW1 ([facility]) Systolic blood pressure 108 mm[Hg] 108 mm[Hg] e CW1 ([facility]) Diastolic blood pressure 68 mm[Hg] 68 mm[Hg] eCW1 ([facility]) Body weight 131.0 [lb_av] 131.0 [lb_av] eCW1 ([facility], 1928–1983) Body weight 59.42 kg 59.42 kg eCW1 ([facility]) Body height 63 [in_i] 63 [in_i] eCW1 ([facility]) Body mass index (BMI) [Ratio] 23.206 kg/m2 23.2 06 kg/m2 eCW1 ([facility]) Systolic blood pressure 110 mm[Hg] 110 mm[Hg] e CW1 ([facility]) Diastolic blood pressure 66 mm[Hg] 66 mm[Hg] eCW1 ([facility]) Body weight 125.8 [lb_av] 125.8 [lb_av] eCW1 ([facility], 1928[facility]) Body height 63 [in_i] 63 [in_i] eCW1 ([facility]) Body mass index (BMI) [Ratio] 22.284 kg/m2 22.2 84 kg/m2 eCW1 ([facility]) Systolic blood pressure 106 mm[Hg] 106 mm[Hg] e CW1 ([facility]) Diastolic blood pressure 60 mm[Hg] 60 mm[Hg] eCW1 ([facility]) Body weight 123.5 [lb_av] 123.5 [lb_av] eCW1 ([facility], [facility]) Body height 63 [in_i] 63 [in_i] eCW1 ([facility]) Body mass index (BMI) [Ratio] 21.87 kg/m2 21.87 kg/m2 W1 ([facility]) Systolic blood pressure 100 mm[Hg] 100 mm[Hg] e CW1 ([facility]) Diastolic blood pressure 62 mm[Hg] 62 mm[Hg] eCW1 ([facility])
--- OUTSIDE RECORDS SUMMARY | 2021-06-17 12:23 | CCD ---
Author Author [facility] Organization [facility] Address Unknown Phone Unavailable Care Team Providers Care Author'S Agent Name Role Phone Gray Solomon Unavailable PROBLEMS Type Condition ICD9-CM Code [id number] Code Onset Dates Condition S tatus W/U Status Risk SNOMED Code Notes Problem Bicornate uterus Q51.3 Active confirmed 314 67495 Problem Supervision of other normal Z34.80 Ac tive confirm [id number] ALLERGIES No Known Allergies ENCOUNTERS from 1998 to 2021-05-17 Encounter Location Date Provider Diagnosis [facility] [address] [place] [address] [place] [address] Apr, Gray Solomon Encounter for superv ision of other normal in third trimester Z34.83 and 35 weeks gestation of Z3A.35 IMMUNIZATIONS Vaccine Route Administration Date Status TDAP [...] FOR REFERRAL No Information VITAL SIGNS Weight 148.4 lbs Apr, Weight-kg 67.31 kg Apr, Height 63 in Apr, BMI 26.288 kg/m2 Apr, Blood pressure systolic 108 mm Hg Apr, Blood pressure diastolic 66 mm Hg Apr, MEDICATIONS Medication SIG (Take, Route, Frequency, Duration) [...] Notes Treatment Notes Treatm ent Clinical Notes Apr, Encounter for supervision of other normal in third trimester (ICD-10 - Z34.83) Apr, 35 weeks gestation of (ICD-10 - Z3A.35 ) PLAN OF TREATMENT Next Appt Details Provider Name:Beronica Worley, 2021-04-27 4 08:20:00 AM, [address] [place] [address], , [place], [address], Provider Name:Hema Parker, 01:00:00 PM, [address] [place] [address], , [place], [address], Insurance Providers Payer Name Payer Address Payer Phone Insured Name Patient Relati onship to Insured Coverage Start Date Coverage End Date [facility] [address] [place] [phone] IVAN JOHNSON [employer] DEPT [address] [facility] [phone] IVAN MONTANEZ self
--- OUTSIDE RECORDS SUMMARY | 2021-06-17 12:23 | CCD ---
Author Author [facility] Organization [facility] Address Unknown Phone Unavailable Care Team Providers Care Energy Broker Name Role Phone ParkerHema Unavailable PROBLEMS Type Condition ICD9-CM Code [id number] Code Onset Dates Condition S tatus W/U Status Risk SNOMED Code Notes Problem Bicornate uterus Q51.3 Active confirmed 314 46188 Problem Supervision of other normal Z34.80 Ac tive confirm [id number] ALLERGIES No Known Allergies ENCOUNTERS from 1998 to 2021-05-26 Encounter Location Date Provider Diagnosis [facility] [address] [facility] [phone] [place] [address] Apr, Hema Parker Encounter for superv ision of other normal in third trimester Z34.83 and 37 weeks gestation of Z3A.37 IMMUNIZATIONS Vaccine Route Administration Date Status TDAP [...] FOR REFERRAL No Information VITAL SIGNS Weight 147.6 lbs Apr, Weight-kg 66.95 kg Apr, Height 63 in Apr, BMI 26.146 kg/m2 Apr, Blood pressure systolic 102 mm Hg Apr, Blood pressure diastolic 70 mm Hg Apr, MEDICATIONS Medication SIG (Take, Route, Frequency, Duration) Notes Start Da te End Date Status 27-1 MG 1 tablet Orally Once a day Active Iron Active PROCEDURES No Information RESULTS No Results REASON FOR VISIT 1 wk pn MEDICAL (GENERAL) HISTORY Type Description Date Surgical History IUD Removal 09/2019 Goals Section No Information Health Concerns No Information MEDICAL EQUIPMENT No Information MENTAL STATUS No Information FUNCTIONAL STATUS No Information ASSESSMENTS Encounter Date Diagnosis Assessment Notes Treatment Notes Treatm ent Clinical Notes Apr, Encounter for supervision of other normal in third trimester (ICD-10 - Z34.83) Apr, 37 weeks gestation of (ICD-10 - Z3A.37 ) PLAN OF TREATMENT Next Appt Details 1 Week Reason:PN Provider Name:Umu Dykes, 2021-05-30 0 3:00:00 PM, [address] [place] [address], , [place], [address], Provider Name:Beronica Worley, 2021-05-26 5 03:20:00 PM, [address] [place] [address], , [place], [address], Follow Up:1 WeekPN Insurance Providers Payer Name Payer Address Payer Phone Insured Name Patient Relati onship to Insured Coverage Start Date Coverage End Date [facility] [employer] CLAIMS DEPT [address] [facility] [phone] IVAN MONTANEZ [employer] [address] [facility] [facility] [phone] IVAN JOHNSON self
--- OUTSIDE RECORDS SUMMARY | 2021-06-17 12:23 | CCD ---
Author Author [facility] Organization [facility] Address Unknown Phone Unavailable Care Team Providers Care Practicing Urologist Name Role Phone Beronica Worley Unavailable PROBLEMS Type Condition ICD9-CM Code [id number] Code Onset Dates Condition S tatus W/U Status Risk SNOMED Code Notes Problem Bicornate uterus Q51.3 Active confirmed 314 77269 Problem Supervision of other normal Z34.80 Ac tive confirm [id number] ALLERGIES No Known Allergies ENCOUNTERS from 1998 to 2021-05-31 Encounter Location Date Provider Diagnosis [facility] [address] [facility] [phone] [place] [address] Apr, Beronica Meir Encounter for superv ision of normal in multigravida in third trimester Z34.83 and 36 weeks gestation of Z3A.36 IMMUNIZATIONS Vaccine Route Administration Date Status TDAP [...] FOR REFERRAL No Information VITAL SIGNS Weight 147 lbs Apr, Height 63 in Apr, BMI 26.04 kg/m2 Apr, Blood pressure systolic 92 mm Hg Apr, Blood pressure diastolic 60 mm Hg Apr, MEDICATIONS Medication SIG (Take, Route, Frequency, Duration) Notes Start Da te End Date Status 27-1 MG 1 tablet Orally Once a day Active Iron Active PROCEDURES No Information RESULTS Component Value Reference Range GROUP B STREP CULTURE Reviewed date:05/21/2021 11:18:04 Interpretation: Performing Lab:[facility], [facility] [address] [facility] [id number] , ,[place] [id number] REASON FOR VISIT 1 wk pn MEDICAL (GENERAL) HISTORY Type Description Date Surgical History IUD Removal 09/2019 Goals Section No Information Health Concerns No Information MEDICAL EQUIPMENT No Information MENTAL STATUS No Information FUNCTIONAL STATUS No Information ASSESSMENTS Encounter Date Diagnosis Assessment Notes Treatment Notes Treatm ent Clinical Notes Apr, Encounter for supervision of normal in multigravida in third trimester (ICD-10 - Z34.83) Apr, 36 weeks gestation of (ICD-10 - Z3A.36 ) PLAN OF TREATMENT Next Appt Details 1 Week Reason: Provider Name:Beronica Worley, 2021-05-1 5 03:20:00 PM, [address] [facility], , [place], [address], Follow Up:1 WeekPrenatal Insurance Providers Payer Name Payer Address Payer Phone Insured Name Patient Relati onship to Insured Coverage Start Date Coverage End Date [employer] CLAIMS DEPT [address] [place] [phone] IVAN MONTANEZ self
--- OUTSIDE RECORDS SUMMARY | 2021-06-17 12:23 | CCD ---
Author Author [facility] Organization [facility] Address Unknown Phone Unavailable Care Team Providers Care Mds Nurse Name Role Phone Beronica Worley Unavailable PROBLEMS Type Condition ICD9-CM Code [id number] Code Onset Dates Condition S tatus W/U Status Risk SNOMED Code Notes Problem Bicornate uterus Q51.3 Active confirmed 314 18484 Problem Supervision of other normal Z34.80 Ac tive confirm [id number] ALLERGIES No Known Allergies ENCOUNTERS from 1998 to 2021-06-14 Encounter Location Date Provider Diagnosis [facility] [address] [facility] [phone] [place] [address] May, Beronica Monyelisabeth Encounter for superv ision of normal in multigravida in third trimester Z34.83 and 39 weeks gestation of Z3A.39 IMMUNIZATIONS Vaccine Route Administration Date Status TDAP [...] No Information VITAL SIGNS Weight 147 lbs May, Height 63 in May, BMI 26.04 kg/m2 May, Blood pressure systolic 100 mm Hg May, Blood pressure diastolic 80 mm Hg May, MEDICATIONS Medication SIG (Take, Route, Frequency, Duration) Notes Start Da te End Date Status Iron Active 27-1 MG 1 tablet Orally Once a day Active PROCEDURES No Information RESULTS No Results REASON FOR VISIT 1 WK PN MEDICAL (GENERAL) HISTORY Type Description Date Surgical History IUD Removal 09/2019 Goals Section No Information Health Concerns No Information MEDICAL EQUIPMENT No Information MENTAL STATUS No Information FUNCTIONAL STATUS No Information ASSESSMENTS Encounter Date Diagnosis Assessment Notes Treatment Notes Treatm ent Clinical Notes May, Encounter for supervision of normal in multigravida in third trimester (ICD-10 - Z34.83) May, 39 weeks gestation of (ICD-10 - Z3A.39 ) PLAN OF TREATMENT Next Appt Details 1 Week Reason: Follow Up:1 WeekPrenatal Insurance Providers Payer Name Payer Address Payer Phone Insured Name Patient Relati onship to Insured Coverage Start Date Coverage End Date [facility] CORPORATE CLAIMS DEPT [address] [place] [phone] IVAN MONTANEZ self
--- OUTSIDE RECORDS SUMMARY | 2021-06-17 12:23 | CCD ---
Author Author [facility] Organization [facility] Address Unknown Phone Unavailable Care Team Providers Care Sales Receptionist Name Role Phone Isabella Borrero Unavailable PROBLEMS Type Condition ICD9-CM Code [id number] Code Onset Dates Condition S tatus W/U Status Risk SNOMED Code Notes Problem Bicornate uterus Q51.3 Active confirmed 314 02749 Problem Supervision of other normal Z34.80 Ac tive confirm [id number] ALLERGIES No Known Allergies ENCOUNTERS from 1998 to 2021-04-05 Encounter Location Date Provider Diagnosis [facility] [address] [place] [address] [place] [address] Mar, Isabella Borrero 30 weeks gestatio n of Z3A.30 ; Encounter for supervision of other normal in third trimester Z34.83 and Encounter for immunization Z23 IMMUNIZATIONS Vaccine Route Administration Date Status TDAP 0.5mL Boostrix IM Intramuscular Apr 04, 2021 Administere d SOCIAL HISTORY Tobacco Use: Social History Observation Description Date Details (start date - stop date) Current some day smoker Sex Assigned At : Social History Observation Description Sex Assigned At Unknown Domestic Violence: Question Answer Notes Status: No history of abuse Tobacco Use: Question Answer Notes Are you a: current some day smoker one cig a month REASON FOR REFERRAL No Information VITAL SIGNS Weight 143.6 lbs Mar, Weight-kg 65.14 kg Mar, Height 63 in Mar, BMI 25.438 kg/m2 Mar, Blood pressure systolic 108 mm Hg Mar, Blood pressure diastolic 68 mm Hg Mar, MEDICATIONS Medication SIG (Take, Route, Frequency, Duration) Notes Start Da te End Date Status Iron Active 27-1 MG 1 tablet Orally Once a day Active PROCEDURES from 1998 to 2021-04-05 Procedure Date Ordered Result Body Site Imm: Boostrix 0.5mL IM TDAP 2021-04-04 N/A RESULTS No Results REASON FOR VISIT 4 WK PN MEDICAL (GENERAL) HISTORY Type Description Date Surgical History IUD Removal 09/2019 Goals Section No Information Health Concerns No Information MEDICAL EQUIPMENT No Information MENTAL STATUS No Information FUNCTIONAL STATUS No Information ASSESSMENTS Encounter Date Diagnosis Assessment Notes Treatment Notes Treatm ent Clinical Notes Mar, 30 weeks gestation of (ICD-10 - Z3A.30 ) Mar, Encounter for supervision of other normal in third trimester (ICD-10 - Z34.83) Mar, Encounter for immunization (ICD-10 - Z23) PLAN OF TREATMENT Next Appt Details 2 Weeks Reason:- Routine follow up Provider Name:Uzma Scott, 2021-04-20 10:40:00 AM, [address] [place] [id number], [place], [address], Provider Name:Gray Solomon, 2021-05-02 10:15:00 AM, [address] [place] [address] , [place], [address], Follow Up:2 Weeks- Routine follow up Insurance Providers Payer Name Payer Address Payer Phone Insured Name Patient Relati onship to Insured Coverage Start Date Coverage End Date [facility] [address] [facility] [phone] IVAN JOHNSONLIS [employer] CLAIMS DEPT [address] [facility] [phone] IVAN MONTANEZ self
--- OUTSIDE RECORDS SUMMARY | 2021-06-17 12:23 | CCD ---
Author Author [facility] Organization [facility] Address Unknown Phone Unavailable Care Team Providers Care Cable Braider Name Role Phone Gray Solomon Unavailable PROBLEMS Type Condition ICD9-CM Code [id number] Code Onset Dates Condition S tatus W/U Status Risk SNOMED Code Notes Problem Bicornate uterus Q51.3 Active confirmed 314 34661 Problem Supervision of other normal Z34.80 Ac tive confirm [id number] ALLERGIES No Known Allergies ENCOUNTERS from 1998 to 2021-05-15 Encounter Location Date Provider Diagnosis [facility] [address] [place] [address] [place] [address] Apr, Gray Solomon Encounter for superv ision of normal in multigravida in third trimester Z34.83 and 34 weeks gestation of Z3A.34 IMMUNIZATIONS Vaccine Route Administration Date Status TDAP [...] FOR REFERRAL No Information VITAL SIGNS Weight 146.4 lbs Apr, Height 63 in Apr, BMI 25.934 kg/m2 Apr, Blood pressure systolic 110 mm Hg Apr, Blood pressure diastolic 62 mm Hg Apr, MEDICATIONS Medication SIG (Take, Route, Frequency, Duration) Notes Start Da te End Date Status 27-1 MG 1 tablet Orally Once a day Active Iron Active PROCEDURES No Information RESULTS No Results REASON FOR VISIT 4 [...] in third trimester (ICD-10 - Z34.83) Apr, 34 weeks gestation of (ICD-10 - Z3A.34 ) PLAN OF TREATMENT Next Appt Details Provider Name:Beronica Worley, 2021-04-27 4 08:20:00 AM, [address] [place] [address], , [place], [address], Provider Name:Hema Parker, 01:00:00 PM, [address] [place] [address], , [place], [address], Insurance Providers Payer Name Payer Address Payer Phone Insured Name Patient Relati onship to Insured Coverage Start Date Coverage End Date [facility] [address] [place] [address] [employer] DEPT [address] [facility] [phone] IVAN MONTANEZ self
--- OUTSIDE RECORDS SUMMARY | 2021-06-17 12:23 | CCD ---
Demographics Address [address] [address] Preferred Language Unknown Marital Status Unknown Yazidism Affiliation Unknown Race White Ethnic Group Unknown Author Author [facility] Organization [facility] Address Unknown Phone Unavailable Care Team Providers Care Funeral Location Manager Name Role Phone DonisUmu Unavailable PROBLEMS Type Condition ICD9-CM Code [id number] Code Onset Dates Condition S tatus W/U Status Risk SNOMED Code Notes Problem Bicornate uterus Q51.3 Active confirmed 314 41769 Problem Supervision of other normal Z34.80 Ac tive confirm [id number] ALLERGIES No Known Allergies ENCOUNTERS from 1998 to 2021-05-30 Encounter Location Date Provider Diagnosis [facility] [address] [place] [address] [place] [address] May, Umu Dykes Encounter for superv ision of other normal in third trimester Z34.83 IMMUNIZATIONS Vaccine Route Administration Date Status TDAP [...] No Information VITAL SIGNS Weight 146.4 lbs May, Weight-kg 66.41 kg May, Height 63 in May, BMI 25.934 kg/m2 May, Blood pressure systolic 100 mm Hg May, Blood pressure diastolic 60 mm Hg May, MEDICATIONS Medication SIG (Take, [...] Clinical Notes May, Encounter for supervision of other normal in third trimester (ICD-10 - Z34.83) PLAN OF TREATMENT Next Appt Details 1 Week Reason: Provider Name:Beronica Worley, 10-1 5 03:20:00 PM, [address] [facility], , [place], [address], Insurance Providers Payer Name Payer Address Payer Phone Insured Name Patient Relati onship to Insured Coverage Start Date Coverage End Date [facility] [employer]POR[employer] CLAIMS DEPT [address] [facility] [phone] IVAN MONTANEZ self
[2021-06-17] MEDS ORDERED: LACTATED RINGER'S 1000 ML IV STA (12:32)
[2021-06-17] MEDS ORDERED: METHYLERGONOVINE MALEATE 0.2 MG/ML VIAL (J2210) IM PRN (12:35)
[2021-06-17] MEDS ORDERED: CARBOPROST TROMETHAMINE 250 MCG/ML AMP IM PRN (12:35)
[2021-06-17] MEDS ORDERED: miSOPROStol 50MCG 1/2 TABLET PO ONE (12:35)
[2021-06-17] MEDS ORDERED: TRANEXAMIC ACID INJection 1,000 MG in NS 100 ML IV PRN (12:35)
--- NOTE | 2021-06-17 12:49 | HPEPDOC ---
Obstetrical History & Physical General Date of Admission Jun 17, 2021 at 12:19 History of Present Illness Patient is a 20-year-old -0-1-0 at 40 weeks and 4 days who presents to labo r and delivery with irregular contractions. Reassuring heart tracing with moderate variability accelerations and no decelerations. Irritability on toco with irregular contractions. Denies leaking of fluid or vaginal bleeding and reports positive movement. Patient is on the induction schedule for tomorrow offered induction of labor at this time which patient agrees to. Chief Complaint: Induction of labor Information Provided By: Patient Age: 20 : 2 Term: 0 Pre-term: 0 Abortions: 1 Livin Care Care: Good Care Dating Final EDC: Jun 13, 2021 EGA at Admission: 40.4 Antepartum Course Diagnos(e)s 1. Nephrolithiasis 2. Late care 3. 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 DIRECTOR History: No pertinent history Past Medical History Surgical History: Denies/None Family History Significant Family History: No pertinent family hx Social History Family situation: Spouse/partner home Psychosocial History: No pertinent psych hx * Smoker: non-smoker Alcohol: Denies Drugs: denies Abuse Violence Screening Have you been hit/kicked/slapp: No Have you been sexually assault: No Imunizations Tdap status: current Allergies Coded Allergies: No Known Allergies (Unverified , 04/20/20) Medications Scheduled No.137/Iron/Folic Acd ( Vitamin Tablet) 1 Each Tablet, 1 TAB PO DAILY Scheduled PRN Acetaminophen (Tylenol) 325 Mg Tablet, 975 MG PO Q6H PRN for PAIN Diphenhydramine HCl (Benadryl) 25 Mg Capsule, 25 MG PO QPM PRN for SLEEP Physical Examination Physical Examination GENERAL: Alert and oriented times three. BREAST: . ABDOMEN: Gravid and non-tender to touch. FETUS: Is vertex (VTX) by BSUS HEART RATE: Regular rate and rhythm. LUNGS: Clear to auscultation (CTA). EXTREMITIES: No edema. No clonus. SVE: 2/75/-2, soft, mid position Vital Signs/I&O Vital Signs Date Time Temp Pulse Resp B/P (MAP) Pulse Ox O2 Delivery O2 Flow Rate FiO2 06/17/21 11:07 97.8 63 16 127/80 (96) 06/17/21 09:32 98 Room Air Laboratory Data 24H LABS Laboratory Tests 2 06/17/21 12:21: Serology Scanned Report Hepatitis B Testing Pertinent Laboratoy Data Blood Type: B+ RBC Antibody Screen: Negative HIV: Negative Hepatitis B: Negative Rapid Plasma Reagin: Immune Rubella: Immune Varicella: Immune Chlamydia/Gonorrhea: Negative Group B Streptococcus: Negative Quad Screen Test: Unknown Cystic Fibrosis: Unknown Glucose Tolerance Test: 125 Vaginal Examination Dilation: 2cm Effacement: 70% Station: -2 Cervical Consistency: Soft Cervical Position: Middle Presentation: Cephalic presentation Assessment Heart Rate (FHR): 135 Variability: Moderate Accelerations: Positive Decelerations: None Tocometer Frequency: irregular Assessment/Plan Assessment Patient is a 20-year-old (G)2 para (P)0-0-1-0 at 40+ 4 weeks by 18-week ultrasound. Presents to Labor and Delivery (L&D) for induction of labor. Plan Admit and orient. Visual And Stock Associate and consent. Diet: Clear liquid. Group B Streptococcus (GBS) negative. Labs and intravenous (IV) per unit protocol. Counseled on Pitocin and induction of labor (IOL). Lactated Ringers (LR): Bolus 500 mL, then at 125 mL/hr. Anticipate spontaneous vaginal delivery. C-S as appropriate. RAFIQ RAMOS MD Jun 17, 2021 12:48
[2021-06-17 13:12] LABS: HEMOGLOBIN 12.2 g/dl (12.0-15.5); MEAN CORPUSCULAR HGB CONC 33.9 g/dl (32.0-36.5); MEAN CORPUSCULAR VOLUME 94.5 fl (80.0-96.0); PLATELET COUNT, AUTOMATED 251 10^3/uL (150-450); RED BLOOD COUNT 3.81 10^6/uL (4.00-5.40)
[2021-06-17] MEDS ORDERED: diphenhydrAMINE 25MG CAP PO ONE (15:15)
[2021-06-17] MEDS ORDERED: ACETAMINOPHEN 500 MG TAB PO ONE (15:15)
[2021-06-17] MEDS ORDERED: FENTANYL 2MCG/ML ROPIVACAINE 0.2% IN 0.9% NACL 100ML IVBAG As Ordered ONE (20:22)
[2021-06-17] MEDS: LR 1,000 ML IV SCH ×2 (21:39→22:32)
[2021-06-17] MEDS ORDERED: OXYTOCIN DRIP 30 UNITS in IV 1 EA IV SCH (22:20)
--- NOTE | 2021-06-17 22:27 | IPNPDOC ---
Obstetrical Progress Note Date of Service Jun 17, 2021 Subjective Pt is comfortable s/p epidural Objective Vital Signs Date Time Temp Pulse Resp B/P (MAP) Pulse Ox O2 Delivery O2 Flow Rate FiO2 06/17/21 22:06 91 16 107/55 (72) 06/17/21 20:38 98.4 06/17/21 09:32 98 Room Air Assessment Heart Rate (FHR): 160 Variability: Moderate Accelerations: Positive Decelerations: None Heart Rate Tracing: Category I Tocometer Contractions: Yes Frequency: regular Sterile Vaginal Examination Dilation: 3 cm Effacement (%): 80% Station: -2 Cervical Consistency: Soft Cervical Position: Middle Postion/Presentation: Cephalic presentation Assessment and Plan Age: 20 : 1 Term: 0 Status: Reassuring Group B Streptococcus: Negative Anticipate: Vaginal Delivery Additional Comments AROM when appropriate RAFIQ RAMOS MD Jun 17, 2021 22:27
[2021-06-17] MEDS: ePHEDrine SULFATE 25 MG/5 ML(5MG/ML) SYRINGE IV PRN ×3 (22:28→22:35)
[2021-06-17] MEDS ORDERED: EPIDURAL COMMENT XX SCH (22:30)
[2021-06-17] MEDS ORDERED: ONDANSETRON 4MG/2ML VIAL IV PRN (22:30)
[2021-06-17] MEDS ORDERED: REFRIGERATOR IV KEYS XX PRN (22:30)
[2021-06-17] MEDS ORDERED: LACTATED RINGER'S 1000 ML IV PRN (22:30)
[2021-06-17] MEDS ORDERED: EPIDURAL/PCA KEYS XX PRN (22:30)
[2021-06-17] MEDS ORDERED: diphenhydrAMINE 50MG/ML VIAL (J1200) IV PRN (22:30)
[2021-06-17] MEDS ORDERED: NALOXONE INJ 0.4MG/1ML VIAL (J2310 PER 1MG) IV PRN (22:30)
[2021-06-18] VITALS (54 sets, daily range): BP systolic 88–137; BP diastolic 47–81
[2021-06-18] MEDS: FENTANYL/ROPIVACAINE/NACL BAG 100 ML EPIDURAL SCH ×3 (07:01→22:30)
[2021-06-18] MEDS: LR 1,000 ML IV SCH ×2 (07:59→15:58)
--- NOTE | 2021-06-18 11:24 | IPNPDOC ---
Obstetrical Progress Note Date of Service Jun 18, 2021 Subjective Pt complaining of increased back pain Objective Vital Signs Date Time Temp Pulse Resp B/P (MAP) Pulse Ox O2 Delivery O2 Flow Rate FiO2 06/18/21 09:51 71 97/54 (68) 06/18/21 08:49 98.8 18 06/17/21 09:32 98 Room Air Assessment Heart Rate (FHR): 135 Variability: Moderate Accelerations: Positive Decelerations: None Heart Rate Tracing: Category I Tocometer Contractions: Yes Frequency: every 1-3 min. Sterile Vaginal Examination Dilation: 5 cm Effacement (%): 90% Station: +1 Cervical Consistency: Soft Postion/Presentation: Cephalic presentation Assessment and Plan Age: 20 : 1 Term: 0 Status: Reassuring Group B Streptococcus: Negative Anticipate: Vaginal Delivery RAFIQ RAMOS MD Jun 18, 2021 11:24
--- NOTE | 2021-06-18 15:27 | IPNPDOC ---
Obstetrical Progress Note Date of Service Jun 18, 2021 Subjective Pt feeling ctx Objective Vital Signs Date Time Temp Pulse Resp B/P (MAP) Pulse Ox O2 Delivery O2 Flow Rate FiO2 06/18/21 13:20 79 111/63 (79) 06/18/21 08:49 98.8 18 06/17/21 09:32 98 Room Air Assessment Heart Rate (FHR): 130 Variability: Moderate Accelerations: Positive Decelerations: None Heart Rate Tracing: Category I Tocometer Contractions: Yes Frequency: regular Sterile Vaginal Examination Dilation: 6 cm Effacement (%): 90% Station: 0 Cervical Consistency: Soft Cervical Position: Middle Assessment and Plan Age: 20 : 1 Term: 0 Group B Streptococcus: Negative Anticipate: Vaginal Delivery Additional Comments IUPC placed to monitor ctx strength. Con't to increase RDP RAFIQ RAMOS MD Jun 18, 2021 15:27
--- NOTE | 2021-06-18 18:29 | IPNPDOC ---
Obstetrical Progress Note Date of Service Jun 18, 2021 Subjective Pt is starting to feel her ctx more Objective Vital Signs Date Time Temp Pulse Resp B/P (MAP) Pulse Ox O2 Delivery O2 Flow Rate FiO2 06/18/21 18:20 98.4 82 18 128/78 (95) 06/17/21 09:32 98 Room Air Assessment Heart Rate (FHR): 140 Variability: Moderate Accelerations: Positive Decelerations: Early Heart Rate Tracing: Category I Tocometer Contractions: Yes Frequency: regular Sterile Vaginal Examination Dilation: 8 cm Effacement (%): 90% Station: +1 Cervical Consistency: Soft Cervical Position: Anterior Postion/Presentation: Cephalic presentation Assessment and Plan Age: 20 : 1 Term: 0 Pre-term: 0 Abortions: 0 Livin Status: Reassuring Group B Streptococcus: Negative Anticipate: Vaginal Delivery RAFIQ RAMOS MD Jun 18, 2021 18:29
[2021-06-18] MEDS ORDERED: diphenhydrAMINE 50MG/ML VIAL (J1200) IV ONE (20:25)
[2021-06-18] MEDS ORDERED: FENTANYL 2MCG/ML ROPIVACAINE 0.2% IN 0.9% NACL 100ML IVBAG As Ordered ONE (22:27)
[2021-06-18] MEDS ORDERED: DOCUSATE SODIUM 100MG CAPSULE PO PRN (23:20)
[2021-06-18] MEDS ORDERED: RHOGAM 300 MCG (1500 IU) INJ (J2790) IM SCH (23:20)
[2021-06-18] MEDS ORDERED: METHYLERGONOVINE MALEATE 0.2 MG TAB PO PRN (23:20)
[2021-06-18] MEDS ORDERED: ONDANSETRON 4MG/2ML VIAL IV PRN (23:20)
[2021-06-18] MEDS ORDERED: MEASLES,MUMPS,RUBELLA VACCINE INJ (MMR-II) (90707) SC SCH (23:20)
[2021-06-18] MEDS ORDERED: DIBUCAINE 1% OINTMENT 30GM TOP PRN (23:20)
[2021-06-19] VITALS: BP 125/70
--- NOTE | 2021-06-19 00:06 | DNPDOC ---
[facility] Delivery Note Delivery Note DATE OF DELIVERY: 06/18/21 PREDELIVERY DIAGNOSIS: 40 5/7 weeks' gestation and labor. POST DELIVERY DIAGNOSIS: Delivered. 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 Rafiq Ramos ANESTHESIA: epidural. ESTIMATED BLOOD LOSS: 100 mL. FINDINGS: 7 pound 15 ounce male infant, Score 9/9 . DELIVERY SUMMARY: Patient is a 20-year-old 1 now para 1 who was admitted to labor and delivery for IOL 2/2 post dates. She was given a dose of misoprostol for cervical ripening before switching to RDP. She received an epidural. After her epidural, she was ruptured for meconium. Patient made slow change but progressed to completely dilated. She pushed well and delivered a vigorous male infant over an intact perineum. The placenta was delivered intact with expression and traction. She had a small first degree perineal laceration which was repaired with a 3.o vicryl suture. Sponge and sharp count correct. RAFIQ RAMOS MD Jun 19, 2021 00:06
[2021-06-19 00:38] VITALS: BP_SYST 112; BP_SYST 125; BP_DIAS 69; BP_DIAS 70
[2021-06-19] MEDS: IBUPROFEN 600MG TAB PO PRN ×3 (01:13→15:36)
[2021-06-19] MEDS: ACETAMINOPHEN 500 MG TAB PO PRN ×2 (02:14→22:20)
[2021-06-19 02:20] VITALS: BP 112/66
[2021-06-19 06:00] VITALS: BP 108/72
[2021-06-19] MEDS: PRENATAL VITAMINS CHEWABLE TABLET PO SCH (09:13)
[2021-06-19 11:16] LABS: HEMOGLOBIN 11.4 g/dl (12.0-15.5); MEAN CORPUSCULAR HEMOGLOBIN 32.4 pg (27.0-33.0); MEAN CORPUSCULAR HGB CONC 33.5 g/dl (32.0-36.5); MEAN CORPUSCULAR VOLUME 96.6 fl (80.0-96.0); PLATELET COUNT, AUTOMATED 213 10^3/uL (150-450); RED BLOOD COUNT 3.52 10^6/uL (4.00-5.40); WHITE BLOOD COUNT 19.7 10^3/uL (4.0-10.0)
--- NOTE | 2021-06-19 12:23 | IPNPDOC ---
Progress Note Date of Service: Jun 19, 2021 Day#: 1 Progress Note SUBJECT: Yuli is a 20-year-old 1 now Para 1001 status post uncomplicated spontaneous vaginal delivery at 40 5/7 weeks' on 06/18/2021 of a male 7 pounds 15 ounces with post vaginal laceration and repair, doing well day # 1. She has been ambulating, voiding spontaneously without issue and tolerating regular diet. Breast feeding and bottle feeding without issue. Reports lochia is like a normal period. Patient is ambulating well. Voiding without difficulty. OBJECTIVE: VITAL SIGNS: Within normal limits, afebrile. Alert and oriented times three. Breathing comfortably on room air, no use of accessory muscles. Abdomen: Fundus firm at U-2. Soft, NTTP. Minimal lochia. ASSESSMENT: PP day 1. PLAN: 1. Discharge to home tomorrow. 2. Tylenol and Motrin for pain. 3. Encourage breast feeding and ambulation. 4. Continue supportive nursing care. VS, I&O, 24H, Fishbone Vital Signs/I&O Vital Signs Date Time Temp Pulse Resp B/P (MAP) Pulse Ox O2 Delivery O2 Flow Rate FiO2 06/19/21 06:00 98.7 66 17 108/72 (84) 98 Room Air I&O- Last 24 Hours up to 6 AM 06/19/21 06:00 Intake Total 5491.5 ml Output Total 2550 ml Balance 2941.5 ml Laboratory Data 24H LABS Laboratory Tests 2 06/19/21 10:42: Nucleated Red Blood Cells % (auto) 0.0 CBC/BMP Laboratory Tests 06/19/21 10:42 JASPREET SHEEST CNM Jun 19, 2021 12:23
[2021-06-19 18:00] VITALS: BP 113/73
[2021-06-20 05:51] VITALS: BP 113/62
[2021-06-20] MEDS: PRENATAL VITAMINS CHEWABLE TABLET PO SCH (07:27)
[2021-06-20] MEDS: IBUPROFEN 600MG TAB PO PRN (07:28)
--- NOTE | 2021-06-20 12:53 | IPNPDOC ---
Progress Note Date of Service: Jun 20, 2021 Day#: 2 Progress Note SUBJECT: Status post . She has been ambulating, voiding spontaneously with out issue and tolerating regular diet. Lochia decreasing/minimal. Pain is well- controlled. Denies headache, visual changes, right upper quadrant pain, shortness breath or chest pain. OBJECTIVE: VITAL SIGNS: Within normal limits, afebrile. Alert and oriented times three. Abdomen: Fundus firm at U-2. Soft, NTTP. ASSESSMENT: Status post uncomplicated spontaneous vaginal delivery. Vitals within normal limits, afebrile, hemodynamically stable with no evidence of infection. PLAN: Discharge to home today. Tylenol and Motrin for pain. Routine instructions/precautions reviewed. Routine PP visit in 6 weeks in clinic. VS, I&O, 24H, Fishbone Vital Signs/I&O Vital Signs Date Time Temp Pulse Resp B/P (MAP) Pulse Ox O2 Delivery O2 Flow Rate FiO2 06/20/21 05:51 98.3 62 16 113/62 (79) 99 Room Air DEVON MCLAIN DO Jun 20, 2021 12:53
== END 2021-06-20 14:00 | disposition home or self-care (01) | DRG 560 ==
LOC: M LDO 09:15 → M LDI 12:19 → M OBS 06-19 01:52
PROVIDERS: ADMIT Obstetrics & Gynecology; ATTEND Obstetrics & Gynecology
PROC: 3E0DXGC Introduction of Other Therapeutic Substance into Mouth and Pharynx, External Approach (ICD-10-PCS; 2021-06-17)
PROC: 10E0XZZ Delivery of Products of Conception, External Approach (ICD-10-PCS; principal; 2021-06-18)
PROC: 0HQ9XZZ Repair Perineum Skin, External Approach (ICD-10-PCS; 2021-06-18)
PROC: 10907ZC Drainage of Amniotic Fluid, Therapeutic from Products of Conception, Via Natural or Artificial Opening (ICD-10-PCS; 2021-06-18)
DX: O48.0 Post-term pregnancy (principal); O77.0 Labor and delivery complicated by meconium in amniotic fluid; Z37.0 Single live birth; Z3A.40 40 weeks gestation of pregnancy; O70.0 First degree perineal laceration during delivery

== ENCOUNTER → 2021-09-20 | Outpatient (CLI) | payer OTHER | LOC: M LABSMTC 13:02 | PROVIDERS: ATTEND Anesthesiology | DX: Z01.812 Encounter for preprocedural laboratory examination (principal); Z20.822 Contact with and (suspected) exposure to COVID-19 ==

== ENCOUNTER → 2021-09-21 | Outpatient (CLI) | payer OTHER ==
[~2021-09-21] MED LIST changes: +KETO10TAB PO; +OXYB5TAB10 PO
[2021-09-21 17:21] LABS: APPEARANCE, URINE HAZY (CLEAR); BACTERIA, URINE AUTO 1+ (NEGATIVE); BILIRUBIN, URINE AUTO NEGATIVE (NEGATIVE); BLOOD, URINE BLOOD 3+ (NEGATIVE); CALCIUM OXALATE CRYSTALS MODERATE; COLOR, URINE YELLOW (YELLOW); GLUCOSE, URINE (UA) AUTO NEGATIVE (NEGATIVE); KETONE, URINE AUTO NEGATIVE (NEGATIVE); LEUKOCYTE ESTERASE, URINE AUTO TRACE (NEGATIVE); MUCUS, URINE SMALL (NEGATIVE); NITRITE, URINE AUTO NEGATIVE (NEGATIVE); PROTEIN, URINE AUTO NEGATIVE (NEGATIVE); RBC, URINE AUTO 1 /HPF (0-3); SPECIFIC GRAVITY URINE AUTO 1.023 (1.002-1.035); SQUAMOUS EPITHELIAL CELL UR AU 5 /HPF (0-6); UROBILINOGEN, URINE AUTO 0.2 mg/dL (0.0-2.0); WBC, URINE AUTO 5 /HPF (0-3)
[2021-09-21 17:33] LABS: HEMATOCRIT 42.2 % (36.0-47.0); HEMOGLOBIN 14.2 g/dl (12.0-15.5); MEAN CORPUSCULAR HEMOGLOBIN 30.9 pg (27.0-33.0); MEAN CORPUSCULAR HGB CONC 33.6 g/dl (32.0-36.5); MEAN CORPUSCULAR VOLUME 91.7 fl (80.0-96.0); PLATELET COUNT, AUTOMATED 327 10^3/uL (150-450); WHITE BLOOD COUNT 8.3 10^3/uL (4.0-10.0)
[2021-09-21 17:36] LABS: INR 0.91; PARTIAL THROMBOPLASTIN TIME 30.2 SECONDS (25.9-37.0); PROTHROMBIN TIME 12.7 SECONDS (12.7-14.5)
[2021-09-21 17:44] LABS: BLOOD UREA NITROGEN 21 MG/DL (7-18); CALCIUM LEVEL 9.8 MG/DL (8.5-10.1); CARBON DIOXIDE LEVEL 25 MEQ/L (21-32); CHLORIDE LEVEL 106 MEQ/L (98-107); CREATININE FOR GFR 0.75 MG/DL (0.55-1.30); GLOMERULAR FILTRATION RATE > 60.0 (>60); GLUCOSE, FASTING 84 MG/DL (70-100); POTASSIUM SERUM 4.3 MEQ/L (3.5-5.1); SODIUM LEVEL 140 MEQ/L (136-145)
[2021-09-21 17:47] LABS: HCG, SERUM QUALITATIVE NEGATIVE (NEGATIVE)
== END ==
LOC: M PLALAB 14:18
PROVIDERS: ATTEND Nurse Practitioner Women's Health
DX: Z01.818 Encounter for other preprocedural examination (principal); N13.2 Hydronephrosis with renal and ureteral calculous obstruction

== ENCOUNTER 2021-09-25 09:28 | Day surgery (SDC) | payer OTHER ==
[~2021-09-25] VITALS: Ht 157.5 cm; Wt 58.5 kg
[~2021-09-25 09:28] MED LIST changes: +LR 1,000 ML IV ONE; -OXYB5TAB10 PO; +ceFAZolin SOD 2 GM in IV 1 EA IV ONE
[2021-09-25] MEDS ORDERED: propofoL 200 MG/20 ML VIAL As Ordered ONE (09:47)
[2021-09-25] MEDS ORDERED: LIDOCAINE 2% 100MG/5ML SDV (FOR ANES.) As Ordered ONE (09:47)
[2021-09-25] MEDS ORDERED: MIDAZOLAM INJ 2MG/2ML VIAL (J2250 PER 1MG) As Ordered ONE (09:48)
[2021-09-25] MEDS ORDERED: fentaNYL 250 MCG/5 ML INJECTION (J3010) As Ordered ONE (09:48)
[2021-09-25] MEDS ORDERED: CONRAY-60 60% 50ML VIAL (Q9961) As Ordered ONE (11:01)
[2021-09-25] MEDS ORDERED: OXYB5TAB10 PO (11:05)
[2021-09-25] MEDS ORDERED: ONDANSETRON 4MG/2ML VIAL As Ordered ONE (11:25)
[2021-09-25] MEDS ORDERED: ACETAMINOPHEN 1000MG 100ML IV BTL (OFIRMEV) (J0131 PER 10MG) As Ordered ONE (11:25)
[2021-09-25] MEDS ORDERED: KETOROLAC 60MG 2ML VIAL As Ordered ONE (11:25)
[2021-09-25] MEDS ORDERED: dexameTHASONE 4 MG/ML 1ML VIAL (J1100 PER 1MG) As Ordered ONE (11:25)
[2021-09-25] MEDS ORDERED: LR 1,000 ML IV SCH (12:45)
[2021-09-25] MEDS ORDERED: ONDANSETRON 4MG/2ML VIAL IV PRN (12:45)
[2021-09-25] MEDS ORDERED: PERCOCET 5MG/325MG TAB PO PRN (12:45)
[2021-09-25] MEDS ORDERED: MEPERIDINE INJ 25 MG/ML VIAL (J2175) IV PRN (12:45)
[2021-09-25] MEDS ORDERED: oxyCODONE 5MG TAB PO PRN (12:45)
[2021-09-25] MEDS ORDERED: oxyBUTYnin 5 MG TAB PO PRN (12:45)
[2021-09-25] MEDS ORDERED: METOCLOPRAMIDE INJ 10MG/2ML VIAL (J2765 PER 1) IV PRN (12:45)
[2021-09-25] MEDS ORDERED: fentaNYL 100 MCG/2 ML INJECTION (J3010) IV PRN (12:45)
[2021-09-25 13:10] VITALS: BP 114/72
== END 2021-09-25 13:25 | disposition home or self-care (01) ==
LOC: M SDC 09:28
PROVIDERS: ATTEND Urology
DX: N20.0 Calculus of kidney (principal); N13.39 Other hydronephrosis; F41.9 Anxiety disorder, unspecified; R06.83 Snoring; Z79.891 Long term (current) use of opiate analgesic; F17.290 Nicotine dependence, other tobacco product, uncomplicated
CPT/HCPCS: 52356; 74420; 81025; 82365; 88300; C2617; J0131; J0690; J1100; J1885; J2250; J2405; J3010; Q9961

== ENCOUNTER → 2022-05-03 | Outpatient (CLI) | payer OTHER ==
[~2022-05-03] MED LIST changes: -LR 1,000 ML IV ONE; +OXYB5TAB10 PO; -ceFAZolin SOD 2 GM in IV 1 EA IV ONE
== END ==
LOC: M PLAIMG 09:06
PROVIDERS: ATTEND Urology
DX: N20.0 Calculus of kidney (principal)

== ENCOUNTER → 2022-06-12 | Outpatient (REF) | payer OTHER ==
[2022-06-13 12:33] LABS: GC DNA AMPLIFICATION NEGATIVE (NEGATIVE)
== END ==
LOC: M SFHCWAGY 10:10
PROVIDERS: ATTEND Obstetrics & Gynecology
DX: Z12.4 Encounter for screening for malignant neoplasm of cervix (principal); Z11.3 Encounter for screening for infections with a predominantly sexual mode of transmission; R87.610 Atypical squamous cells of undetermined significance on cytologic smear of cervix (ASC-US)
CPT/HCPCS: 87624; 87661; 87810; 87850; G0123

== ENCOUNTER → 2023-11-08 | Outpatient (REF) | payer OTHER ==
[~2023-11-08] MED LIST changes: -OXYB5TAB10 PO; +OXYB5TAB14 PO
[2023-11-08 18:57] LABS: Trichomonas vaginalis (AMP) NOT DETECTED (NEGATIVE)
[2023-11-08 19:20] LABS: GC DNA AMPLIFICATION NEGATIVE (NEGATIVE)
== END ==
LOC: M SFHCWAGY 17:33
PROVIDERS: ATTEND Obstetrics & Gynecology
DX: Z12.4 Encounter for screening for malignant neoplasm of cervix (principal); Z11.3 Encounter for screening for infections with a predominantly sexual mode of transmission
CPT/HCPCS: 87624; 87661; 87810; 87850; G0123